=== PATIENT | male | born 1950 | race Caucasian/White ===

== ENCOUNTER 2018-09-20 10:23 | Inpatient (IN) | payer OTHER ==
[2018-09-20 10:52] LABS: Absolute Lymphocytes (CBC) 1.8 K/uL (0.7-4.9); Absolute Monocytes 1.1 K/uL (0.1-1.3); Absolute Neutrophil 11.3 K/uL (1.8-8.0); Eosinophils % 1.7 % (0-4.4); Lymphocytes % 12.3 % (15.3-44.8); Monocytes % 7.3 % (3.3-12.3); RBC Red Blood Cell Count 4.54 M/uL (4.33-5.43)
[2018-09-20 10:53] LABS: Protime INR 1.44
[2018-09-20] MEDS ORDERED: NA CHLORIDE 0.9% 1,000 ML ONE (10:56)
--- NOTE | 2018-09-20 11:13 | RAD REPORT ---
EXAM DESCRIPTION: Rand Single View09/20/2018 10:54 am CLINICAL HISTORY: sob COMPARISON: None FINDINGS: The lungs appear clear of acute infiltrate. The heart is mildly enlarged. Pacemaker leads are in place. Postsurgical changes involve the chest IMPRESSION: No acute abnormalities displayed
[2018-09-20 11:22] LABS: Albumin 3.2 g/dL (3.4-5.0); Bilirubin Direct 0.6 mg/dL (0-0.2); Bilirubin Total 1.2 mg/dL (0.2-1.0); Magnesium 1.8 mg/dL (1.8-2.4); Potassium 4.4 mmol/L (3.5-5.1); Protein, Total 6.5 g/dL (6.4-8.2)
[2018-09-20 11:30] LABS: Troponin (Emerg Dept Use Only) 2.13 ng/mL (0.0-0.045)
--- NOTE | 2018-09-20 12:14 | RAD REPORT ---
EXAM DESCRIPTION: CT - Abdomen Pelvis Wo Contrast - 09/20/2018 11:54 am CLINICAL HISTORY: Abdominal pain /left lower quadrant pain COMPARISON: None TECHNIQUE: Computed axial tomography of the abdomen and pelvis was obtained. IV and oral contrast we re not requested. All CT scans are performed using dose optimization technique as appropriate and may include automated exposure control or mA/KV adjustment according to patient size. FINDINGS: The evaluation of solid organs, vessels and bowel is limited secondary to the lack of con trast administration. The liver, spleen, pancreas, and adrenals appear grossly normal. There is no evidence of diverticulitis. The wall of the distal transverse colon is moderately thicken ed. The wall of portions of the descending and sigmoid colon are mildly to moderately thickened. A small amount of ascites is present. Small renal cysts suspected. No hydronephrosis. Stranding within the perirenal fat is noted IMPRESSION: Moderate colitis
[2018-09-20] MEDS ORDERED: CEFOXITIN/SWI 1gm 1 GM/10 ML SYR ONE (12:36)
[2018-09-20] MEDS ORDERED: METRONIDAZOLE 500mg IVPB 500 MG/100 ML BAG IV ONE (12:36)
--- NOTE | 2018-09-20 13:52 | ER ---
Nurse's Notes [facility] Name: José Prabhakar Age: 68 yrs Sex: Male : 1950 Arrival Date: 09/20/2018 Time: 10:26 Bed 2 Private MD: Diagnosis: Colitis;Gastrointestinal hemorrhage, unspecified;Ventricular tachycardia;Non-ST elevation (NSTEMI) myocardial infarction Presentation: 09/20 10:26 Presenting complaint: EMS states: Pt at the [facility], c/o weakness and his defibrillator went jl7 off 2 days ago. [facility] gave 324 aspirin, after administering aspirin pt reports bloody stools for the last 2 days. C/O LLQ pain. Transition of care: patient was received from another setting of care (ambulatory primary care physician practice), [facility]. Onset of symptoms was September 18, 2018. Risk Assessment: Do you want to hurt yourself or someone else? Patient reports no desire to harm self or others. Initial Sepsis Screen: Does the patient meet any 2 criteria? Systolic BP < 90 mmHg. Mean Arterial Pressure (MAP) < 65. Does the patient have a suspected source of infection? No. Patient's initial sepsis screen is negative. Care prior to arrival: Medication(s) given: Normal saline infusion, 500 mL, IV initiated. 20 GA, in the right forearm. 10:26 Method Of Arrival: EMS: [facility] jl7 10:26 Acuity: GELY 2 jl7 Triage Assessment: 10:37 General: Appears in no apparent distress. uncomfortable, Behavior is calm, cooperative, jl7 appropriate for age. Pain: Complains of pain in left lower quadrant Pain currently is 0 out of 10 on a pain scale. Pain began 2-3 days ago. Neuro: Level of Consciousness is awake, alert, obeys commands, Oriented to person, place, time, situation. Cardiovascular: Patient's skin is warm and dry. Respiratory: Airway is patent Respiratory effort is even, unlabored, Respiratory pattern is regular, symmetrical. GI: Bowel sounds present X 4 quads. Abd is soft Abdomen is tender to palpation in right lower quadrant and left lower quadrant Reports bloody stool. : No signs and/or symptoms were reported regarding the genitourinary system. Derm: Skin is pink, warm \T\ dry. Musculoskeletal: No signs and/or symptoms reported regarding the musculoskeletal system. Historical: - Allergies: 10:34 No Known Allergies; jl7 - Home Meds: 11:03 albuterol sulfate 90 mcg/actuation Inhl HFAA [Active]; aspirin 81 mg Oral chew 1 tab jl7 once daily [Active]; atorvastatin 20 mg oral tab 1 tab once daily [Active]; carboxymethylcellulose sodium miscellaneous gran [Active]; cholecalciferol (vitamin D3) 400 unit oral cap [Active]; cyanocobalamin (vitamin B-12) 1,000 mcg oral tab [Active]; cyclobenzaprine 10 mg Oral tab [Active]; docusate sodium 100 mg Oral cap [Active]; duloxetine 30 mg oral cpDR [Active]; fluticasone propionate (bulk) 100 % miscellaneous powd [Active]; furosemide 20 mg oral tab [Active]; Novolog 100 unit/mL Sub-Q soln [Active]; lisinopril 10 mg Oral tab 1 tab once daily [Active]; metoprolol tartrate 50 mg Oral tab [Active]; tiotropium bromide inhalation inhalation [Active]; - PMHx: 10:34 High Cholesterol; Anemia; Depression; Diabetes - NIDDM; Atrial Fib; defibrillator; jl7 Chronic Kidney disease=stage 3; Hypertension; GERD; Prostate cancer; CAD; Hyperlipidemia; - Immunization history:: Adult Immunizations up to date. - Social history:: Smoking status: Patient/guardian denies using tobacco. - Ebola Screening: : No symptoms or risks identified at this time. Screenin:00 Abuse screen: Denies threats or abuse. Denies injuries from another. Nutritional jl7 screening: No deficits noted. Tuberculosis screening: No symptoms or risk factors identified. Fall Risk IV access (20 points). Total Barksdale Fall Scale indicates No Risk (0-24 pts). Assessment: 10:45 General: See triage assessment. jl7 12:00 Reassessment: Patient appears in no apparent distress at this time. No changes from [facility] previously documented assessment. Patient and/or family updated on plan of care and expected duration. Pain level reassessed. Patient is alert, oriented x 3, equal unlabored respirations, skin warm/dry/pink. Patient denies pain at this time. 13:00 Reassessment: Patient appears in no apparent distress at this time. Patient and/or 7 family updated on plan of care and expected duration. Pain level reassessed. Patient is alert, oriented x 3, equal unlabored respirations, skin warm/dry/pink. 14:00 Reassessment: Patient appears in no apparent distress at this time. No changes from jl7 previously documented assessment. Patient and/or family updated on plan of care and expected duration. Pain level reassessed. Patient is alert, oriented x 3, equal unlabored respirations, skin warm/dry/pink. 15:00 Reassessment: Patient and/or family updated on plan of care and expected duration. Pain jl7 level reassessed. Patient is alert, oriented x 3, equal unlabored respirations, skin warm/dry/pink. Vital Signs: 10:35 BP 73 / 32; Pulse 65; Resp 19 S; Temp 98.2(O); Pulse Ox 99% on R/A; Weight 90.26 kg jl7 (R); Height 5 ft. 11 in. (180.34 cm) (R); Pain 0/10; 10:54 BP 90 / 56; Pulse 68; Resp 16 S; Pulse Ox 98% on R/A; jl7 11:03 BP 83 / 55; Pulse 63; Resp 15 S; Pulse Ox 98% on R/A; jl7 12:10 BP 116 / 61; Pulse 76; Resp 20 S; Pulse Ox 97% on R/A; jl7 12:47 BP 102 / 59; Pulse 79; Resp 14 S; Pulse Ox 97% on R/A; jl7 13:48 BP 105 / 61; Pulse 76; Resp 14 S; Pulse Ox 100% on R/A; jl7 14:00 BP 107 / 62; Pulse 80; Resp 16 S; Pulse Ox 98% on R/A; jl7 14:30 BP 91 / 54; Pulse 79; Resp 16 S; Pulse Ox 97% on R/A; jl7 15:00 BP 87 / 58; Pulse 78; Resp 16 S; Pulse Ox 98% on R/A; jl7 15:30 BP 102 / 66; Pulse 81; Resp 16 S; Pulse Ox 98% on R/A; jl7 10:35 Body Mass Index 27.75 (90.26 kg, 180.34 cm) jl7 ED Course: 10:26 Patient arrived in ED. jl7 10:27 Jose Villegas PA is PHCP. jr8 10:27 Moshe Plaza MD is Attending Physician. jr8 10:30 Triage completed. jl7 10:35 Arm band placed on right wrist. jl7 10:55 EKG done, by gate technician. reviewed by Jose REDMAN times three. at1 10:56 XRAY Chest (1 view) In Process Unspecified. EDMS 11:07 Jewels Muir, BREANNA is Primary Nurse. jl7 11:15 Inserted saline lock: 20 gauge in left antecubital area, using aseptic technique. jl7 11:15 Initial lab(s) drawn, by ED staff, sent to lab. jl7 11:52 CT completed. Patient tolerated procedure well. Patient moved to CT via stretcher. vr Patient moved back from CT. 11:55 CT Abd/Pelvis - Without Cont In Process Unspecified. EDMS 12:00 Patient has correct armband on for positive identification. Placed in gown. Bed in low jl7 position. Call light in reach. Side rails up X 1. 13:49 Sloane Winston MD is Hospitalizing Provider. jr8 14:48 \T\1156 initiated a transfer with Charlee at the [facility]/ \T\[address] Hawkins with Jose REDMAN for patient transfer consultation/ \T\1330 pt declined at the [facility] due to being at capacity. 16:34 No provider procedures requiring assistance completed. Patient admitted, IV remains in jl7 place. intact, No redness/swelling at site. Administered Medications: 10:45 Drug: NS 0.9% 500 ml Route: IV; Rate: bolus; Site: right antecubital; jl7 11:15 Follow up: IV Status: Completed infusion; IV Intake: 500ml jl7 12:34 Drug: Mefoxin 1 grams {Note: Provided by pharmacy in 10ml IVP, administered IVP over 3 jl7 min per pharmacy instruction.} Route: IVPB; Infused Over: 30 mins; Site: right antecubital; 12:37 Follow up: Response: No adverse reaction; IV Status: Completed infusion jl7 12:40 Drug: Flagyl 500 mg Volume: 100 ml; Route: IVPB; Rate: 200 ml/hr; Infused Over: 30 jl7 mins; Site: right antecubital; 13:10 Follow up: Response: No adverse reaction; IV Status: Completed infusion jl7 Intake: 11:15 IV: 500ml; Total: 500ml. jl7 Outcome: 13:50 Decision to Hospitalize by Provider. jrJewels 16:32 Admitted to ICU accompanied by nurse, accompanied by tech, family with patient, via jl7 stretcher, room 5, on monitor, with chart, Report called to ICU nurse 16:32 Condition: stable 16:32 Discharge instructions given to patient, family, Instructed on the need for admit, Demonstrated understanding of instructions. 16:35 Patient left the ED. jl7 Signatures: Dispatcher [employer] EDMS Laila Hamilton ms, Victoria vr Roszak, Josh, PA PA jr8 Kari Dowd, erection shop supervisor EKG Ramon1 Jewels Muir, RN RN jl7
--- NOTE | 2018-09-20 13:52 | EDPHYS ---
Physician Documentation [facility] Name: José Prabhakar Age: 68 yrs Sex: Male : 1950 Arrival Date: 09/20/2018 Time: 10:26 Bed 2 Private MD: ED Physician Moshe Plaza HPI: 09/20 10:49 This 68 yrs old Male presents to ER via EMS with complaints of Bloody jr8 Stools/Syncope. 10:49 Patient stated that he has had three day history of on/off BRBPR. Stated that he has jr8 had on/off bleeding for years. But over the past few days has had falls secondary to Syncope and his defibrillator has gone off twice now. Was at [facility] office today and confirmed defibrillator going off. Patient could not tell me why. Patient hypotensive per EMS and on arrival to ED. Has had mild abdominal discomfort to lower abdomen as well. Severity of symptoms: At their worst the symptoms were moderate in the emergency department the symptoms are unchanged. The patient has not experienced similar symptoms in the past. The patient has not recently seen a physician. Historical: - Allergies: 10:34 No Known Allergies; jl7 - Home Meds: 11:03 albuterol sulfate 90 mcg/actuation Inhl HFAA [Active]; aspirin 81 mg Oral chew 1 tab jl7 once daily [Active]; atorvastatin 20 mg oral tab 1 tab once daily [Active]; carboxymethylcellulose sodium miscellaneous gran [Active]; cholecalciferol (vitamin D3) 400 unit oral cap [Active]; cyanocobalamin (vitamin B-12) 1,000 mcg oral tab [Active]; cyclobenzaprine 10 mg Oral tab [Active]; docusate sodium 100 mg Oral cap [Active]; duloxetine 30 mg oral cpDR [Active]; fluticasone propionate (bulk) 100 % miscellaneous powd [Active]; furosemide 20 mg oral tab [Active]; Novolog 100 unit/mL Sub-Q soln [Active]; lisinopril 10 mg Oral tab 1 tab once daily [Active]; metoprolol tartrate 50 mg Oral tab [Active]; tiotropium bromide inhalation inhalation [Active]; - PMHx: 10:34 High Cholesterol; Anemia; Depression; Diabetes - NIDDM; Atrial Fib; defibrillator; jl7 Chronic Kidney disease=stage 3; Hypertension; GERD; Prostate cancer; CAD; Hyperlipidemia; - Immunization history:: Adult Immunizations up to date. - Social history:: Smoking status: Patient/guardian denies using tobacco. - Ebola Screening: : No symptoms or risks identified at this time. ROS: 10:49 Eyes: Negative for injury, pain, redness, and discharge, ENT: Negative for injury, jr8 pain, and discharge, Neck: Negative for injury, pain, and swelling, Cardiovascular: Negative for chest pain, palpitations, and edema, Respiratory: Negative for shortness of breath, cough, wheezing, and pleuritic chest pain, Back: Negative for injury and pain, MS/Extremity: Negative for injury and deformity, Skin: Negative for injury, rash, and discoloration. 10:49 Abdomen/GI: Positive for abdominal pain, rectal bleeding, Negative for nausea, vomiting, and diarrhea, abdominal cramps, abdominal distension, anorexia, hematemesis, black/tarry stool, bowel incontinence, flatulence. 10:49 Neuro: Positive for dizziness, syncope, near syncope. Exam: 10:49 Eyes: Pupils equal round and reactive to light, extra-ocular motions intact. Lids and jr8 lashes normal. Conjunctiva and sclera are non-icteric and not injected. Cornea within normal limits. Periorbital areas with no swelling, redness, or edema. ENT: Nares patent. No nasal discharge, no septal abnormalities noted. Tympanic membranes are normal and external auditory canals are clear. Oropharynx with no redness, swelling, or masses, exudates, or evidence of obstruction, uvula midline. Mucous membranes moist. Neck: Trachea midline, no thyromegaly or masses palpated, and no cervical lymphadenopathy. Supple, full range of motion without nuchal rigidity, or vertebral point tenderness. No Meningismus. Cardiovascular: Regular rate and rhythm with a normal S1 and S2. No gallops, murmurs, or rubs. Normal PMI, no JVD. No pulse deficits. Respiratory: Lungs have equal breath sounds bilaterally, clear to auscultation and percussion. No rales, rhonchi or wheezes noted. No increased work of breathing, no retractions or nasal flaring. Back: No spinal tenderness. No costovertebral tenderness. Full range of motion. Skin: Warm, dry with normal turgor. Normal color with no rashes, no lesions, and no evidence of cellulitis. MS/ Extremity: Pulses equal, no cyanosis. Neurovascular intact. Full, normal range of motion. Neuro: Awake and alert, GCS 15, oriented to person, place, time, and situation. Cranial nerves II-XII grossly intact. Motor strength 5/5 in all extremities. Sensory grossly intact. Cerebellar exam normal. Normal gait. 10:49 Abdomen/GI: Inspection: abdomen appears normal, Bowel sounds: active, all quadrants, Palpation: soft, in all quadrants, mild abdominal tenderness, in the right lower quadrant, mass, is not appreciated, rebound tenderness, is not appreciated, voluntary guarding, is not appreciated, involuntary guarding, is not appreciated, no appreciated organomegaly, Indicators: McBurney's point is not tender, Trammell's sign is negative, Rovsing's sign is negative, Liver: tenderness, is not appreciated. Vital Signs: 10:35 BP 73 / 32; Pulse 65; Resp 19 S; Temp 98.2(O); Pulse Ox 99% on R/A; Weight 90.26 kg jl7 (R); Height 5 ft. 11 in. (180.34 cm) (R); Pain 0/10; 10:54 BP 90 / 56; Pulse 68; Resp 16 S; Pulse Ox 98% on R/A; jl7 11:03 BP 83 / 55; Pulse 63; Resp 15 S; Pulse Ox 98% on R/A; jl7 12:10 BP 116 / 61; Pulse 76; Resp 20 S; Pulse Ox 97% on R/A; jl7 12:47 BP 102 / 59; Pulse 79; Resp 14 S; Pulse Ox 97% on R/A; jl7 13:48 BP 105 / 61; Pulse 76; Resp 14 S; Pulse Ox 100% on R/A; jl7 14:00 BP 107 / 62; Pulse 80; Resp 16 S; Pulse Ox 98% on R/A; jl7 14:30 BP 91 / 54; Pulse 79; Resp 16 S; Pulse Ox 97% on R/A; jl7 15:00 BP 87 / 58; Pulse 78; Resp 16 S; Pulse Ox 98% on R/A; jl7 15:30 BP 102 / 66; Pulse 81; Resp 16 S; Pulse Ox 98% on R/A; jl7 10:35 Body Mass Index 27.75 (90.26 kg, 180.34 cm) jl7 MDM: 10:27 Patient medically screened. jr8 13:23 Data reviewed: vital signs, nurses notes, lab test result(s), EKG, radiologic studies, jr8 CT scan, plain films. Data interpreted: Pulse oximetry: on room air is 97 %. Interpretation: normal. Counseling: I had a detailed discussion with the patient and/or guardian regarding: the historical points, exam findings, and any diagnostic results supporting the discharge/admit diagnosis, lab results, radiology results. ED course: Patient is a [facility] patient that has all of his cardiac care done there. Attempting to transfer to [facility] for elevated troponin and arrhythmia . 13:48 ED course: Spoke with [facility]. Hawkins at the [facility]. Unable to accept patient as they do not [facility] have any CCU openings currently. Dr. Winston will see patient here and admit to our ICU. Cardiology will evaluate here. . 09/20 10:33 Order name: Basic Metabolic Panel; Complete Time: 11:33 09/20 10:33 Order name: CBC with Diff; Complete Time: 11:07 09/20 10:33 Order name: LFT's; Complete Time: 11:33 09/20 10:33 Order name: Magnesium; Complete Time: 11:33 09/20 10:33 Order name: NT PRO-BNP; Complete Time: 11:33 09/20 10:33 Order name: PT-INR; Complete Time: 11:07 09/20 10:33 Order name: Troponin (emerg Dept Use Only); Complete Time: 11:33 09/20 10:33 Order name: XRAY Chest (1 view); Complete Time: 11:26 09/20 10:33 Order name: TS; Complete Time: 12:02 09/20 11:24 Order name: ABO/RH no charge; Complete Time: 11:26 EDMS 09/20 11:34 Order name: CT Abd/Pelvis - Without Cont; Complete Time: 12:17 09/20 10:33 Order name: EKG; Complete Time: 10:34 09/20 10:33 Order name: Cardiac monitoring; Complete Time: 10:44 09/20 10:33 Order name: EKG - Nurse/Tech; Complete Time: 10:44 09/20 10:33 Order name: IV Saline Lock; Complete Time: 10:44 09/20 10:33 Order name: Labs collected and sent; Complete Time: :44 09/20 10:33 Order name: O2 Per Protocol; Complete Time: 10:44 09/20 10:33 Order name: O2 Sat Monitoring; Complete Time: 10:44 09/20 10:58 Order name: EKG Electrocardiogram EDMS 09/20 10:58 Order name: EKG Electrocardiogram EDMS Administered Medications: 10:45 Drug: NS 0.9% 500 ml Route: IV; Rate: bolus; Site: right antecubital; jl7 11:15 Follow up: IV Status: Completed infusion; IV Intake: 500ml jl7 12:34 Drug: Mefoxin 1 grams {Note: Provided by pharmacy in 10ml IVP, administered IVP over 3 jl7 min per pharmacy instruction.} Route: IVPB; Infused Over: 30 mins; Site: right antecubital; 12:37 Follow up: Response: No adverse reaction; IV Status: Completed infusion jl7 12:40 Drug: Flagyl 500 mg Volume: 100 ml; Route: IVPB; Rate: 200 ml/hr; Infused Over: 30 jl7 mins; Site: right antecubital; 13:10 Follow up: Response: No adverse reaction; IV Status: Completed infusion jl7 Disposition: 09/20/18 13:50 Hospitalization ordered by Sloane Winston for Inpatient Admission. Preliminary diagnosis are Colitis, Gastrointestinal hemorrhage, unspecified, Ventricular tachycardia, Non-ST elevation (NSTEMI) myocardial infarction. - Bed requested for Intensive Care Unit. - Status is Inpatient Admission. jl7 - Condition is Stable. - Problem is new. - Symptoms have improved. UTI on Admission? No Addendum: 09/23/2018 05:30 Co-signature as Attending Physician, Moshe Plaza MD I agree with the assessment and c dixon plan of care. Signatures: Dispatcher [employer] Raquel Sweet, RN Moshe Santos MD MD cha Roszak, Josh, PA PA jr8 Jewels Muir RN RN jl7 Corrections: (The following items were deleted from the chart) 09/20 13:51 13:50 Hospitalization Ordered by Sloane Winston MD for Inpatient Admission. Preliminary jr8 diagnosis is Colitis; Gastrointestinal hemorrhage, unspecified; Ventricular tachycardia. Bed requested for Intensive Care Unit. Status is Inpatient Admission. Condition is Stable. Problem is new. Symptoms have improved. UTI on Admission? No. jr8 15:25 13:51 09/20/2018 13:50 Hospitalization Ordered by Sloane Winston MD for Inpatient dw Admission. Preliminary diagnosis is Colitis; Gastrointestinal hemorrhage, unspecified; Ventricular tachycardia; Non-ST elevation (NSTEMI) myocardial infarction. Bed requested for Intensive Care Unit. Status is Inpatient Admission. Condition is Stable. Problem is new. Symptoms have improved. UTI on Admission? No. jr8 16:35 15:25 09/20/2018 13:50 Hospitalization Ordered by Sloane Winston MD for Inpatient jl7 Admission. Preliminary diagnosis is Colitis; Gastrointestinal hemorrhage, unspecified; Ventricular tachycardia; Non-ST elevation (NSTEMI) myocardial infarction. Bed requested for Intensive Care Unit. Status is Inpatient Admission. Condition is Stable. Problem is new. Symptoms have improved. UTI on Admission? No. dw
--- NOTE | 2018-09-20 16:20 | EKG ---
Test Date: 2018-09-20 Test Time: 10:50:05 Protohistorian: ELVIRA MEASUREMENT RESULTS: Intervals: Rate: 64 NM: 302 QRSD: 98 QT: 512 QTc: 528 [place]: P: 75 NM: 302 QRS: 264 T: 102 INTERPRETIVE STATEMENTS: Sinus rhythm with sinus arrhythmia with 1st degree AV block Anterolateral infarct, age undetermined Prolonged QT Abnormal ECG Compared to ECG 09/20/2018 10:49:28 First degree AV block now present Ventricular-paced complex(es) or rhythm no longer present Atrial premature complex(es) no longer present Ventricular premature complex(es) no longer present Short NM interval no longer present Myocardial infarct finding still present Electronically Signed On 09-20-18 16:19:01 COPPERSMITH APPRENTICE by Oswald Randall
--- NOTE | 2018-09-20 16:20 | EKG ---
Test Date: 2018-09-20 Test Time: 10:48:41 Elevator Operator Freight: ELVIRA MEASUREMENT RESULTS: Intervals: Rate: 80 PA: QRSD: 98 QT: 494 QTc: 569 [place]: P: 97 PA: QRS: 265 T: 103 INTERPRETIVE STATEMENTS: Suspect arm lead reversal, interpretation assumes no reversal Demand pacemaker, interpretation is based on intrinsic rhythm Sinus rhythm with AV dissociation and Accelerated Junctional rhythm with occasional and consecutive premature ventricular compl Inferior infarct, possibly acute Anterolateral infarct, age undetermined Prolonged QT Electronically Signed On 09-20-18 16:20:18 FOOT ROENTGENOLOGIST by Oswald Randall
--- NOTE | 2018-09-20 16:20 | EKG ---
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 [employer] Salvaging: ELVIRA MEASUREMENT RESULTS: Intervals: Rate: 76 CA: 80 QRSD: 98 QT: 496 QTc: 558 [place]: P: 96 CA: 80 QRS: 264 T: 99 INTERPRETIVE STATEMENTS: Demand pacemaker, interpretation is based on intrinsic rhythm Sinus rhythm with short CA with premature supraventricular complexes with occasional premature ventricular complexes and fusion Possible Right ventricular hypertrophy Anterolateral infarct, age undetermined Prolonged QT Abnormal ECG Compared to ECG 09/20/2018 10:48:41 Atrial premature complex(es) now present Short CA interval now present Accelerated junctional rhythm no longer present Electronically Signed On 09-20-18 16:20:03 PRISON GUARD by Oswald Randall
[2018-09-20] MEDS: NA CHLORIDE 0.9% 1,000 ML IV SCH (17:03)
[2018-09-20] MEDS ORDERED: CEFOXITIN SODIUM 1 GM/VIAL IVPB SCH ×2 (19:00→20:00)
--- NOTE | 2018-09-20 19:05 | P.HP ---
Certification for Inpatient Patient admitted to: Inpatient With expected LOS: >2 Midnights Practitioner: I am a practitioner with admitting privileges, knowledge of patient current condition, hospital course, and medical plan of care. Services: Services provided to patient in accordance with Admission requirements found in Title 42 Section 412.3 of the Code of Federal Regulations Patient History Date of Service: 09/20/18 Reason for admission: Pacemaker firing History of Present Illness: This is a 68-year-old male with history of hypertension, CKD stage 3, prostate cancer, CAD, atrial fibrillation with pacemaker/defibrillator placement, non- insulin-dependent 3 days mellitus hyperlipidemia admitted for pacemaker firing associated with syncopal episodes, along with abdominal pain that has been progressively worsening for the past few days. Patient stated the Sunday prior to arrival, he was not feeling well. He scheduled an appointment with his primary care physician because he continued to worsen. Prior to his primary care appointment on the day of admission, he stated that he had a fall/ syncope. He also states that when he moves or walks too much 8 starts to feel lightheaded. He has been having this nagging chest sensation along with pain in his abdomen. He was told to go to the emergency room from his primary care physician's office. Of note, patient was also complaining of 3 days of bright red blood per rectum that he noted in the toilet bowl. He states that the last time he noticed this was a few days ago. In our ER, transfer was attempted to the [facility] but they were unsuccessful in transferring as the hospital was full. In the ER, he was found to have a idioventricular rhythm along with episodes of V-tach that was causing his defibrillator to go off. His blood pressure was initially low, responded to IV fluids. She received a total 1.5 L bolus in the ER. In the ER his lab work was significant for troponin of 2.13. A CT scan of his abdomen with evidence of colitis. He was started on IV fluids, antibiotics with Mefoxin and Flagyl. At the time of my exam, he is alert oriented x3, in no acute distress and was hemodynamically stable. Allergies No Known Allergies Allergy (Unverified 09/20/18 16:09) Home Medications: Aspirin [Aspirin EC 81 MG] 1 tab PO DAILY 09/20/18 Atorvastatin Calcium 20 mg PO BEDTIME 09/20/18 Carboxymethylcellulose Sodium [Lubricant Eye Drop] 1 gtt OPTH PRN PRN 09/20/18 Cholecalciferol (Vitamin D3) [Vitamin D3] 1 cap PO BID 09/20/18 Cyanocobalamin [Vitamin B-12*] 1 tab PO DAILY 09/20/18 Cyclobenzaprine [Flexeril*] 1 tab PO PRN PRN 09/20/18 Docusate Sodium 100 mg PO BID 09/20/18 Duloxetine HCl 30 mg PO BEDTIME 09/20/18 Duloxetine HCl 60 mg PO DAILY 09/20/18 Furosemide 20 mg PO BID 09/20/18 Lisinopril 10 mg PO DAILY 09/20/18 Sulfamethoxazole/Trimethoprim [Bactrim Ds Tablet] 1 tab PO BID 09/20/18 Tiotropium [place] [Spiriva] 2 inh IH PRN PRN 09/20/18 - Past Medical/Surgical History Has patient received pneumonia vaccine in the past: Yes Diabetic: Yes -: hyperlipidimia -: CKD -: HTN -: GERD -: Prostate CA -: CAD -: Anemia -: NIDDM -: AFib -: ICD - Social History Smoking Status: Former smoker Alcohol use: No CD- Drugs: No Caffeine use: Yes Place of Residence: Home Review of Systems 10-point ROS is otherwise unremarkable Physical Examination - Vital Signs Temperature: 96.6 F Blood Pressure: 89/53 Pulse: 62 Respirations: 16 Pulse Ox (%): 98 - Physical Exam General: Alert, In no apparent distress, Oriented x3 HEENT: Atraumatic, PERRLA, Mucous membr. moist/pink, EOMI, Sclerae nonicteric Neck: Supple, 2+ carotid pulse no bruit, No LAD, Without JVD or thyroid abnormality Respiratory: Clear to auscultation bilaterally, Normal air movement Cardiovascular: Irregular heart rate/rhythm Gastrointestinal: Normal bowel sounds, Tenderness (Diffuse) Musculoskeletal: No tenderness Integumentary: No rashes Neurological: Normal gait, Normal speech, Normal strength at 5/5 x4 extr, Normal tone, Normal affect Lymphatics: No axilla or inguinal lymphadenopathy - Studies Laboratory Data (last 24 hrs) 09/20/18 10:28: PT 16.7 H, INR 1.44 09/20/18 10:28: WBC 14.5 H, Hgb 13.6, Hct 40.0, Plt Count 269 09/20/18 10:28: Sodium 136, Potassium 4.4, BUN 41 H, Creatinine 2.91 H, Glucose 146 H, Magnesium 1.8, Total Bilirubin 1.2 H, AST 12 L, ALT 12, Alkaline Phosphatase 93 Assessment and Plan - Problems (Diagnosis) (1) Syncope Current Visit: Yes Status: Acute Qualifiers: Syncope type: unspecified Qualified Code(s): R55 - Syncope and collapse (2) Defibrillator discharge Current Visit: Yes Status: Acute (3) Cardiac defibrillator in situ Current Visit: Yes Status: Chronic (4) Colitis Current Visit: Yes Status: Acute (5) Hypertension Current Visit: Yes Status: Chronic Qualifiers: Hypertension type: essential hypertension Qualified Code(s): I10 - Essential (primary) hypertension (6) CKD (chronic kidney disease) Current Visit: Yes Status: Chronic Qualifiers: Chronic kidney disease stage: stage 3 (moderate) Qualified Code(s): N18.3 - Chronic kidney disease, stage 3 (moderate) (7) History of prostate cancer Current Visit: Yes Status: Chronic (8) Diabetes mellitus Current Visit: Yes Status: Chronic Qualifiers: Diabetes mellitus type: type 2 Diabetes mellitus intermediate designer insulin use: without retirement use Diabetes mellitus complication status: without complication Qualified Code(s): E11.9 - Type 2 diabetes mellitus without complications (9) Atrial fibrillation Current Visit: Yes Status: Chronic Qualifiers: Atrial fibrillation type: chronic Qualified Code(s): I48.2 - Chronic atrial fibrillation (10) Hyperlipidemia Current Visit: Yes Status: Chronic Qualifiers: Hyperlipidemia type: unspecified Qualified Code(s): E78.5 - Hyperlipidemia , unspecified (11) CHF (congestive heart failure) Current Visit: Yes Status: Chronic Qualifiers: Heart failure type: unspecified Heart failure chronicity: chronic Qualified Code(s): I50.9 - Heart failure, unspecified (12) Acute renal failure Current Visit: Yes Status: Acute Qualifiers: Acute renal failure type: unspecified Qualified Code(s): N17.9 - Acute kidney failure, unspecified - Plan This is a 68-year-old male with: Defibrillator discharge (Acute) Z45.02 Cardiac defibrillator in situ (Chronic) We will get his pacemaker interrogated with [facility]. Monitor in the ICU with tele. Syncope (Acute) R55 Likely secondary to his defibrillator discharge. Will monitor after pacemaker interrogation. Atrial fibrillation (Chronic) I48.91 Will continue his home medications Cardiology consult Colitis (Acute) K52.9 He will avoid fluoroquinolones because this cardiac disease. Will start patient on Mefoxin and Flagyl for his colitis. Keep NPO at this time Will continue to monitor next CHF (congestive heart failure) (Chronic) I50.9 Unspecified stage. History per patient. No evidence of volume overload at this time. Acute Kidney disease CKD (chronic kidney disease) (Chronic) N18.9 Unsure of baseline Cr, though Cr elevated. Will avoid nephrotoxic drugs Gently hydration d/t his CHF hx. continue to monitor. Diabetes mellitus (Chronic) E11.9 ACHS accu-checks Mild sliding scale insulin Hyperlipidemia (Chronic) E78.5 Stable, will continue home medications Hypotension w/ hx of Hypertension (Chronic) I10 He is s/p 1.5 L bolus in ED d/t low blood pressure. Improved now, continue to monitor. Hold HTN medications at this time. Will restart and adjust as needed. Discontinue lisinopril d/t JE History of prostate cancer (Chronic) Z85.46 DVT prophylaxis: Lovenox GI prophylaxis: None Diet: NPO Disposition:Admit to ICU, Pacemaker interogation, Monitor hemodynamics. - Advance Directives Does patient have a Living Will: No Does patient have a Durable POA for Healthcare: No
[2018-09-20] MEDS: METRONIDAZOLE 500mg IVPB 500 MG/100 ML BAG IV SCH (20:20)
[2018-09-21] MEDS: METRONIDAZOLE 500mg IVPB 500 MG/100 ML BAG IV SCH ×3 (01:25→17:16)
[2018-09-21] MEDS: NA CHLORIDE 0.9% 1,000 ML IV SCH ×3 (02:26→13:07)
[2018-09-21 05:35] LABS: Absolute Lymphocytes (CBC) 2.2 K/uL (0.7-4.9); Absolute Monocytes 0.8 K/uL (0.1-1.3); Absolute Neutrophil 9.2 K/uL (1.8-8.0); Basophils % 1.2 % (0-1.3); Eosinophils % 3.9 % (0-4.4); Hematocrit 34.6 % (39.6-49.0); MPV 9.2 fL (7.6-11.3); Monocytes % 6.1 % (3.3-12.3); RBC Red Blood Cell Count 4.01 M/uL (4.33-5.43)
[2018-09-21] MEDS: CEFOXITIN/SWI 1gm 1 GM/10 ML SYR IV SCH ×2 (05:48→18:08)
[2018-09-21 05:53] LABS: Albumin 3.2 g/dL (3.4-5.0); Bilirubin Total 0.8 mg/dL (0.2-1.0); Potassium 4.1 mmol/L (3.5-5.1)
--- NOTE | 2018-09-21 13:58 | CON ---
Date of Consultation: 09/21/[address] Winston's service on 09/20/2018. I saw the patient on 09/21/2018. Reason For Consultation: AICD discharge, bright red blood per rectum, and syncope. History Of Present Illness: Mr. Prabhakar is a 68-year-old white male, who has an extensive past card iac history. He has a history of defibrillator placed many years ago in [place], has a history of coronary artery bypass surgery done at the [facility] here locally. He normally is a [place] patient. Apparently had 2 AICD discharge, which was confirmed by the [facility]. AICD investigation here s howed no VT or VF. He had atrial tachycardia with automatic mode switch. Atrial output was increase d to help prevent that. He has not had any arrhythmias since he has been in the hospital. Has had s ome bright red blood per rectum, but his hemoglobin is 13.6. He has been on Bactrim and lisinopril f or an ear infection and hypertension. His creatinine was 2.91. He came in with a white count of 14, 000. Troponin was 1.76. BNP was 34,256. His blood pressure was 94/60. He was also diagnosed to dixon ve colitis, and he is on Flagyl now. Denied any chest pain or shortness of breath. Denied any vomit ing or diaphoresis. Has had some nausea. No palpitations. Past Medical History: Includes CAD, status post CABG; dyslipidemia; hypertension; anemia; gastroesop hageal reflux disease; diabetes; depression; atrial fibrillation; history of prostate cancer, cured i n 2004; chronic renal disease stage 3; and history of defibrillator. Allergies: NONE. Review of Systems: Negative. Social History: Negative. Family History: Noncontributory. Medications: At home include aspirin; Lipitor; Spiriva; Lasix; lisinopril; Bactrim; and metoprolol, which was stopped about a month ago, this was stopped secondary to hypotension. Physical Examination: General: He appears to be in no acute distress. Vital signs: Blood pressure is 94/60, sinus rhythm. HEENT: Negative. Neck: Supple without any bruit, lymphadenopathy, JVD, or thyromegaly. Chest: Clear to auscultation and percussion. Cardiac exam: Revealed a regular rhythm and rate with no murmurs or rubs or gallops. Abdomen: Obese, but benign. Extremities: Revealed no clubbing, cyanosis, or edema. Pulses are present in the dorsalis pedis and posterior tibial. Neurologic: He was intact. Skin: Dry and intact. Diagnostic Data: As stated earlier. Chest x-ray is negative. EKG showed normal sinus rhythm with n onspecific changes. Impression And Plan: 1.Syncope, AICD shocks secondary to atrial tachycardia, automatic mode switch. Atrial output was in creased. I will suggest digoxin p.r.n. and maybe a low-dose metoprolol if he tolerates it. Amiodaro ne is another suggestions. I will leave that up to the [facility] physicians. 2.Chronic renal insufficiency stage 3. Creatinine was 2.91. I suggest he gets off Bactrim and aron nopril for now. 3.Diabetes. 4.Colitis, on antibiotics. 5.Elevated troponin and BNP secondary to renal failure and chronic congestive heart failure. 6.His other problems include dyslipidemia, depression, gastroesophageal reflux disease, and history of prostate cancer. All of those are stable at this point. 7.He has bright red blood per rectum, but his hemoglobin is 13.6 and certainly does not require any invasive cardiac workup at this point. He can be moved to a regular room telemetry whenever it is okay with Dr. Winston, and I will continue t o follow him. CEDRIC/DONAVAN Voice ID: [id number] Report ID: [id number]
--- NOTE | 2018-09-21 14:15 | P.PN ---
Subjective Date of Service: 09/21/18 Chief Complaint: Pacemaker firing Subjective: Improving Patient seen and examined at bedside. at bedside. Chart reviewed and case discussed with nursing staff. Patient reports improvement in symptoms. No complaints overnight. No tele events or defibrillator discharge overnight. Tolerating regular diet at this time. Denies any new blood in stool, any active bleeding, any chest pain, any shortness of breath, any dizziness or syncopal episodes since he has been here. Does not feel like his pacemaker/ defibrillator has been sent off. He is status post interrogation by [facility]. Review of Systems 10-point ROS is otherwise unremarkable Physical Examination - Vital Signs Temperature: 96.6 F Blood Pressure: 89/53 Pulse: 62 Respirations: 16 Pulse Ox (%): 98 - Physical Exam General: Alert, In no apparent distress, Oriented x3 HEENT: Atraumatic, PERRLA, EOMI Neck: Supple, JVD not distended Respiratory: Clear to auscultation bilaterally, Normal air movement Cardiovascular: Regular rate/rhythm, Normal S1 S2 Gastrointestinal: Normal bowel sounds, No tenderness Musculoskeletal: No tenderness Integumentary: No rashes Neurological: Normal speech, Normal tone, Normal affect Lymphatics: No axilla or inguinal lymphadenopathy Assessment And Plan - Current Problems (Diagnosis) (1) Syncope Current Visit: Yes Status: Acute Qualifiers: Qualified Code(s): R55 - Syncope and collapse (2) Defibrillator discharge Current Visit: Yes Status: Acute (3) Cardiac defibrillator in situ Current Visit: Yes Status: Chronic (4) Colitis Current Visit: Yes Status: Acute (5) Hypertension Current Visit: Yes Status: Chronic Qualifiers: Qualified Code(s): I10 - Essential (primary) hypertension (6) CKD (chronic kidney disease) Current Visit: Yes Status: Chronic Qualifiers: Qualified Code(s): N18.3 - Chronic kidney disease, stage 3 (moderate) (7) History of prostate cancer Current Visit: Yes Status: Chronic (8) Diabetes mellitus Current Visit: Yes Status: Chronic Qualifiers: Qualified Code(s): E11.9 - Type 2 diabetes mellitus without complications (9) Atrial fibrillation Current Visit: Yes Status: Chronic Qualifiers: Qualified Code(s): I48.2 - Chronic atrial fibrillation (10) Hyperlipidemia Current Visit: Yes Status: Chronic Qualifiers: Qualified Code(s): E78.5 - Hyperlipidemia, unspecified (11) CHF (congestive heart failure) Current Visit: Yes Status: Chronic Qualifiers: Qualified Code(s): I50.9 - Heart failure, unspecified (12) Acute renal failure Current Visit: Yes Status: Acute Qualifiers: Acute renal failure type: unspecified Qualified Code(s): N17.9 - Acute kidney failure, unspecified - Plan This is a 68-year-old male with: Defibrillator discharge (Acute) Z45.02 Cardiac defibrillator in situ (Chronic) Status post pacemaker interrogation with [facility]. It seems that his defibrillator was discharging from atrial tachycardia. Defibrillator adjusted. Syncope (Acute) R55 No episodes while in the hospital. Likely secondary to his defibrillator discharge. Continue to monitor after pacemaker interrogation. Atrial fibrillation (Chronic) I48.91 Will continue his home medications Cardiology consult, recommendations appreciated Colitis (Acute) K52.9 Improving We will avoid fluoroquinolones because this cardiac disease. Continue IV Mefoxin and Flagyl for his colitis. CHF (congestive heart failure) (Chronic) I50.9 Unspecified stage. History per patient. No evidence of volume overload at this time. Acute Kidney disease CKD (chronic kidney disease) (Chronic) N18.9 Unsure of baseline Cr, though Cr elevated and worsened this morning. Will avoid nephrotoxic drugs Continue Gentle hydration d/t his CHF hx. continue to monitor. Diabetes mellitus (Chronic) E11.9 ACHS accu-checks Mild sliding scale insulin Hyperlipidemia (Chronic) E78.5 Stable, will continue home medications Hypotension w/ hx of Hypertension (Chronic) I10 He is s/p 1.5 L bolus in ED d/t low blood pressure. Improved now, continue to monitor. Hold HTN medications at this time. Will restart and adjust as needed. Discontinue lisinopril d/t JE History of prostate cancer (Chronic) Z85.46 DVT prophylaxis: Lovenox GI prophylaxis: None Diet: NPO Disposition: Patient stable after pacemaker interrogation/defibrillator adjustments. Will go ahead and transfer to the floor, continue to monitor overnight. Likely discharge home in the next 24-48 hr continues to remain stable. Discharge Plan: Home
[2018-09-22] MEDS: METRONIDAZOLE 500mg IVPB 500 MG/100 ML BAG IV SCH ×3 (01:55→16:22)
[2018-09-22] MEDS: NA CHLORIDE 0.9% 1,000 ML IV SCH ×2 (05:04→17:13)
[2018-09-22] MEDS: CEFOXITIN/SWI 1gm 1 GM/10 ML SYR IV SCH ×2 (05:04→17:13)
[2018-09-22 05:32] VITALS: BMI 29.2
[2018-09-22 05:51] LABS: Absolute Lymphocytes (CBC) 1.7 K/uL (0.7-4.9); Absolute Monocytes 0.7 K/uL (0.1-1.3); Absolute Neutrophil 7.7 K/uL (1.8-8.0); Eosinophils % 4.2 % (0-4.4); Hematocrit 35.6 % (39.6-49.0); Lymphocytes % 15.5 % (15.3-44.8); Monocytes % 6.6 % (3.3-12.3); RBC Red Blood Cell Count 4.09 M/uL (4.33-5.43)
[2018-09-22 06:06] LABS: Albumin 3.1 g/dL (3.4-5.0); Bilirubin Total 0.7 mg/dL (0.2-1.0); Potassium 4.5 mmol/L (3.5-5.1); Protein, Total 6.2 g/dL (6.4-8.2)
[2018-09-22] MEDS: DOCUSATE NA 100 MG CAP PO PRN ×2 (09:48→20:44)
[2018-09-22 10:53] LABS: Urine Appearance CLEAR; Urine Bilirubin NEGATIVE (NEG); Urine Blood NEGATIVE (NEG); Urine Color YELLOW; Urine Glucose NEGATIVE (NEG); Urine Protein 1+ (NEG); Urine Specific Gravity 1.015 (1.005-1.030); Urine Urobilinogen 0.2 mg/dL (0.2-1.0); Urine pH 5.5 (5.0-7.0)
[2018-09-22 11:11] LABS: Urine Bacteria <20 /HPF (NONE SEEN); Urine Culture Reflex Order NOT NEEDED; Urine RBC <5 /HPF (NONE SEEN)
[2018-09-22] MEDS ORDERED: CARBOXYMETHYLCELLULOSE SODIUM OPTH PRN (11:52)
--- NOTE | 2018-09-22 11:53 | P.PN ---
Subjective Date of Service: 09/22/18 Chief Complaint: Pacemaker discharging Subjective: No C/O voiced, Improving Patient seen and examined at bedside. No family at bedside. Chart reviewed and case discussed with nursing staff. Patient reports improvement in symptoms. No complaints overnight. No tele events or defibrillator discharge overnight. Tolerating regular diet at this time. States he has not had any bowel movements yet. Denies any active bleeding, any chest pain, any shortness of breath, any dizziness or syncopal episodes since he has been here. Does not feel like his pacemaker/defibrillator has been sent off. He is status post interrogation by [facility]. Review of Systems 10-point ROS is otherwise unremarkable Physical Examination - Vital Signs Temperature: 98.2 F Blood Pressure: 118/63 Pulse: 71 Respirations: 22 Pulse Ox (%): 94 - Physical Exam General: Alert, In no apparent distress, Oriented x3 HEENT: Atraumatic, PERRLA, EOMI Neck: Supple, JVD not distended Respiratory: Clear to auscultation bilaterally, Normal air movement Cardiovascular: Regular rate/rhythm, Normal S1 S2 Gastrointestinal: Normal bowel sounds, No tenderness Musculoskeletal: No tenderness Integumentary: No rashes Neurological: Normal speech, Normal tone, Normal affect Lymphatics: No axilla or inguinal lymphadenopathy Assessment And Plan - Current Problems (Diagnosis) (1) Syncope Current Visit: Yes Status: Acute Qualifiers: Qualified Code(s): R55 - Syncope and collapse (2) Defibrillator discharge Current Visit: Yes Status: Acute (3) Cardiac defibrillator in situ Current Visit: Yes Status: Chronic (4) Colitis Current Visit: Yes Status: Acute (5) Hypertension Current Visit: Yes Status: Chronic Qualifiers: Qualified Code(s): I10 - Essential (primary) hypertension (6) CKD (chronic kidney disease) Current Visit: Yes Status: Chronic Qualifiers: Qualified Code(s): N18.3 - Chronic kidney disease, stage 3 (moderate) (7) History of prostate cancer Current Visit: Yes Status: Chronic (8) Diabetes mellitus Current Visit: Yes Status: Chronic Qualifiers: Qualified Code(s): E11.9 - Type 2 diabetes mellitus without complications (9) Atrial fibrillation Current Visit: Yes Status: Chronic Qualifiers: Qualified Code(s): I48.2 - Chronic atrial fibrillation (10) Hyperlipidemia Current Visit: Yes Status: Chronic Qualifiers: Qualified Code(s): E78.5 - Hyperlipidemia, unspecified (11) CHF (congestive heart failure) Current Visit: Yes Status: Chronic Qualifiers: Qualified Code(s): I50.9 - Heart failure, unspecified (12) Acute renal failure Current Visit: Yes Status: Acute Qualifiers: Acute renal failure type: unspecified Qualified Code(s): N17.9 - Acute kidney failure, unspecified - Plan This is a 68-year-old male with: Defibrillator discharge (Acute) Z45.02 Cardiac defibrillator in situ (Chronic) Status post pacemaker interrogation with [facility]. It seems that his defibrillator was discharging from atrial tachycardia. Defibrillator adjusted. No new episodes noted. Syncope (Acute) R55 No episodes while in the hospital. Likely secondary to his defibrillator discharge. Continue to monitor after pacemaker interrogation. Atrial fibrillation (Chronic) I48.91 Will continue his home medications Cardiology consult, recommendations appreciated Colitis (Acute) K52.9 Improving We will avoid fluoroquinolones because this cardiac disease. Continue IV Mefoxin and Flagyl for his colitis. CHF (congestive heart failure) (Chronic) I50.9 Unspecified stage. History per patient. No evidence of volume overload at this time. Acute Kidney disease CKD (chronic kidney disease) (Chronic) N18.9 Unsure of baseline Cr, though Cr elevated and worsened this morning. May consider getting nephrology consult Will avoid nephrotoxic drugs Continue Gentle hydration d/t his CHF hx. continue to monitor. Diabetes mellitus (Chronic) E11.9 ACHS accu-checks Mild sliding scale insulin Hyperlipidemia (Chronic) E78.5 Stable, will continue home medications Hypotension w/ hx of Hypertension (Chronic) I10 He is s/p 1.5 L bolus in ED d/t low blood pressure. Improved now, continue to monitor. Hold HTN medications at this time. Will restart and adjust as needed. Discontinue lisinopril d/t JE History of prostate cancer (Chronic) Z85.46 DVT prophylaxis: Lovenox GI prophylaxis: None Diet: Heart healthy/renal Disposition: Patient stable after pacemaker interrogation/defibrillator adjustments. Will go ahead and transfer to the floor, continue to monitor overnight. Likely discharge home in the next 24-48 hr continues to remain stable.
--- NOTE | 2018-09-22 12:41 | PN ---
Date of Progress Note: 09/22/2018 Subjective: Mr. Prabhakar had been admitted with syncope secondary to atrial tachycardia. Atrial out put was increased by the defibrillator manufacturers service representative. Today, he remains in paced rhythm. Blood pre ssure is 111/59. His hemoglobin is 12. His creatinine is 3.34, which is increased. I would continu e to hold his Bactrim, Lasix, and lisinopril as well as aspirin. I recommend gentle hydration just t o see what his creatinine does. Certainly, getting a renal consult may be reasonable. No change in therapy at this point. Continue Flagyl. CEDRIC/MODL Voice ID: [id number] Report ID: [id number]
[2018-09-22] MEDS: VITAMIN D 400 UNIT TAB PO SCH (20:44)
[2018-09-22] MEDS: ATORVASTATIN 20 MG TAB PO SCH (20:44)
[2018-09-22] MEDS: DULOXETINE 30 MG CAP PO SCH (20:45)
[2018-09-23] MEDS: METRONIDAZOLE 500mg IVPB 500 MG/100 ML BAG IV SCH ×3 (00:15→16:40)
[2018-09-23] MEDS: CEFOXITIN/SWI 1gm 1 GM/10 ML SYR IV SCH ×2 (05:30→17:21)
[2018-09-23] MEDS: NA CHLORIDE 0.9% 1,000 ML IV SCH ×3 (06:00→20:00)
[2018-09-23 06:13] LABS: Absolute Monocytes 0.9 K/uL (0.1-1.3); Absolute Neutrophil 9.2 K/uL (1.8-8.0); Basophils % 2.5 % (0-1.3); Eosinophils % 3.4 % (0-4.4); Hematocrit 37.3 % (39.6-49.0); Lymphocytes % 15.3 % (15.3-44.8); RBC Red Blood Cell Count 4.39 M/uL (4.33-5.43)
[2018-09-23 06:32] LABS: Albumin 2.9 g/dL (3.4-5.0); Bilirubin Total 0.8 mg/dL (0.2-1.0); Potassium 4.8 mmol/L (3.5-5.1); Protein, Total 5.9 g/dL (6.4-8.2)
[2018-09-23] MEDS: VITAMIN D 400 UNIT TAB PO SCH ×2 (09:23→20:01)
[2018-09-23] MEDS: CYANOCOBALAMIN 1,000 MCG TAB PO SCH (09:23)
[2018-09-23] MEDS: ASPIRIN EC 81 MG TAB PO SCH (09:23)
[2018-09-23] MEDS: DULOXETINE 30 MG CAP PO SCH ×2 (09:24→20:00)
--- NOTE | 2018-09-23 12:59 | P.PN ---
Subjective Date of Service: 09/23/18 Chief Complaint: Pacemaker discharging Subjective: No C/O voiced, Ambulating, Improving Patient seen and examined at bedside. No family at bedside. Chart reviewed and case discussed with nursing staff. Patient reports improvement in symptoms. No complaints overnight. No tele events or defibrillator discharge overnight. Tolerating regular diet at this time. Reports 1 of bloody normal bowel movement overnight. Denies any active bleeding, any chest pain, any shortness of breath, any dizziness or syncopal episodes since he has been here. Does not feel like his pacemaker/defibrillator has been sent off. He is status post interrogation by [facility]. Review of Systems 10-point ROS is otherwise unremarkable Physical Examination - Vital Signs Temperature: 97.7 F Blood Pressure: 120/66 Pulse: 73 Respirations: 18 Pulse Ox (%): 95 - Physical Exam General: Alert, In no apparent distress, Oriented x3 HEENT: Atraumatic, PERRLA, EOMI Neck: Supple, JVD not distended Respiratory: Clear to auscultation bilaterally, Normal air movement Cardiovascular: Regular rate/rhythm, Normal S1 S2 Gastrointestinal: Normal bowel sounds, No tenderness Musculoskeletal: No tenderness Integumentary: No rashes Neurological: Normal speech, Normal tone, Normal affect Lymphatics: No axilla or inguinal lymphadenopathy Assessment And Plan - Current Problems (Diagnosis) (1) Syncope Onset Date: 09/23/18 Current Visit: Yes Status: Acute Qualifiers: Qualified Code(s): R55 - Syncope and collapse (2) Defibrillator discharge Onset Date: 09/23/18 Current Visit: Yes Status: Acute (3) Cardiac defibrillator in situ Onset Date: 09/23/18 Current Visit: Yes Status: Chronic (4) Colitis Onset Date: 09/23/18 Current Visit: Yes Status: Acute (5) Hypertension Onset Date: 09/23/18 Current Visit: Yes Status: Chronic Qualifiers: Qualified Code(s): I10 - Essential (primary) hypertension (6) CKD (chronic kidney disease) Onset Date: 09/23/18 Current Visit: Yes Status: Chronic Qualifiers: Qualified Code(s): N18.3 - Chronic kidney disease, stage 3 (moderate) (7) History of prostate cancer Onset Date: 09/23/18 Current Visit: Yes Status: Chronic (8) Diabetes mellitus Onset Date: 09/23/18 Current Visit: Yes Status: Chronic Qualifiers: Qualified Code(s): E11.9 - Type 2 diabetes mellitus without complications (9) Atrial fibrillation Onset Date: 09/23/18 Current Visit: Yes Status: Chronic Qualifiers: Qualified Code(s): I48.2 - Chronic atrial fibrillation (10) Hyperlipidemia Onset Date: 09/23/18 Current Visit: Yes Status: Chronic Qualifiers: Qualified Code(s): E78.5 - Hyperlipidemia, unspecified (11) CHF (congestive heart failure) Onset Date: 09/23/18 Current Visit: Yes Status: Chronic Qualifiers: Qualified Code(s): I50.9 - Heart failure, unspecified (12) Acute renal failure Onset Date: 09/23/18 Current Visit: Yes Status: Acute Qualifiers: Acute renal failure type: unspecified Qualified Code(s): N17.9 - Acute kidney failure, unspecified - Plan This is a 68-year-old male with: Defibrillator discharge (Acute) Z45.02 Cardiac defibrillator in situ (Chronic) Status post pacemaker interrogation with [facility]. It seems that his defibrillator was discharging from atrial tachycardia. Defibrillator adjusted. No new episodes noted. Syncope (Acute) R55 No episodes while in the hospital. Likely secondary to his defibrillator discharge. Continue to monitor after pacemaker interrogation. Atrial fibrillation (Chronic) I48.91 Will continue his home medications Cardiology consult, recommendations appreciated Colitis (Acute) K52.9 Improving We will avoid fluoroquinolones because this cardiac disease. Continue IV Mefoxin and Flagyl for his colitis. Plan is at discharge, will discontinue Mefoxin and continue oral Flagyl. CHF (congestive heart failure) (Chronic) I50.9 Unspecified stage. History per patient. No evidence of volume overload at this time. Acute Kidney disease CKD (chronic kidney disease) (Chronic) N18.9 Unsure of baseline Cr, though Cr elevated and worsened this morning. Improved creatinine this morning. Will continue to monitor overnight, if worse in tomorrow will consult nephrology Will avoid nephrotoxic drugs Continue Gentle hydration d/t his CHF hx. continue to monitor. Diabetes mellitus (Chronic) E11.9 ACHS accu-checks Mild sliding scale insulin Hyperlipidemia (Chronic) E78.5 Stable, will continue home medications Hypotension w/ hx of Hypertension (Chronic) I10 He is s/p 1.5 L bolus in ED d/t low blood pressure. Improved now, continue to monitor. Hold HTN medications at this time. Will restart and adjust as needed. Discontinue lisinopril d/t JE History of prostate cancer (Chronic) Z85.46 DVT prophylaxis: Lovenox GI prophylaxis: None Diet: Heart healthy/renal Disposition: Patient stable after pacemaker interrogation/defibrillator adjustments. Monitor a.m. labs for creatinine. If creatinine stable, likely discharge home in the next 24-48 hr continues to remain stable.
[2018-09-23] MEDS: ATORVASTATIN 20 MG TAB PO SCH (20:00)
[2018-09-24] MEDS: METRONIDAZOLE 500mg IVPB 500 MG/100 ML BAG IV SCH ×2 (00:10→08:02)
[2018-09-24] MEDS: CEFOXITIN/SWI 1gm 1 GM/10 ML SYR IV SCH (05:28)
[2018-09-24] MEDS: ASPIRIN EC 81 MG TAB PO SCH (08:04)
[2018-09-24] MEDS: DULOXETINE 30 MG CAP PO SCH (08:04)
[2018-09-24] MEDS: CYANOCOBALAMIN 1,000 MCG TAB PO SCH (08:05)
[2018-09-24] MEDS: VITAMIN D 400 UNIT TAB PO SCH (08:05)
[2018-09-24] MEDS ORDERED: TIOTROPIUM IH SCH (09:00)
[2018-09-24 09:38] VITALS: TEMP 97.4
[2018-09-24] MEDS ORDERED: POLYETHYL GLY 3350 17 GM/DOSE PO PRN (09:44)
[2018-09-24 09:47] VITALS: O2SAT 95
[2018-09-24] MEDS: DOCUSATE NA 100 MG CAP PO PRN (09:51)
[2018-09-24 10:46] LABS: Absolute Monocytes 0.7 K/uL (0.1-1.3); Absolute Neutrophil 7.2 K/uL (1.8-8.0); Basophils % 1.8 % (0-1.3); Eosinophils % 4.1 % (0-4.4); Hematocrit 38.1 % (39.6-49.0); Lymphocytes % 18.7 % (15.3-44.8); MPV 8.9 fL (7.6-11.3); Monocytes % 6.8 % (3.3-12.3); RBC Red Blood Cell Count 4.21 M/uL (4.33-5.43)
[2018-09-24 12:33] VITALS: BP 113/59
--- NOTE | 2018-09-25 04:59 | DS ---
Date of Discharge: 09/24/2018 Admitting Diagnoses: 1. Syncope. 2. Defibrillator discharge. 3. Acute colitis. 4. Essential hypertension. 5. Chronic kidney disease, stage 3. 6. History of prostate cancer. 7. Diabetes mellitus type 2 with long-term use of insulin with chronic kidney disease, stage 3. 8. Chronic atrial fibrillation. 9. Mixed hyperlipidemia. 10. Chronic congestive heart failure, unknown ejection fraction. 11. Gmdho-yu-yicnxjr kidney disease. 12. Hypotension. Hospital Course: The patient is a 68-year-old male, comes in with a history of hypertension; chronic kidney disease, stage 3; prostate cancer; coronary artery disease; atrial fibrillation with pacemaker defibrillator; diabetes, who comes in with pacemaker firing associated with syncopal episodes. The patient was admitted to the hospital. He was unable to be transferred to the [facility] as they were full. He was found to have episodes of ventricular tachycardia adioventricular rhythm causing the defibrillator to go off. He was evaluated by Cardiology and [facility] technical sales representative. His defibrillator was adjusted, did not have any further episodes. He did have elevated cardiac troponin related to the defibrillator discharge. The patient's kidney function did become somewhat more elevated than baseline. He does report chronic kidney disease, however, baseline creatinine is unknown. The patient is a [facility] patient. The patient did have an elevated white count which normalized. The patient was found to have some colitis on CT scan, was having some abdominal discomfort. He was started on IV antibiotics with cefoxitin and Flagyl. Overall, the patient's condition improved. He did not have any further bloody stools. His hemoglobin remained stable. He did report some constipation, was started on stool softeners. He was seen by Cardiology with Dr. Randall who felt that the syncopal episode was due to the AICD shocks secondary to atrial tachycardia. His atrial output was increased. The patient was then cleared for discharge and his lisinopril and Bactrim were held due to his acute-on- chronic renal insufficiency. The patient was then discharged home in a stable condition. He did work well with PT and the patient wanted to have physical therapy set up through the [facility] as well. Medications: As per medication reconciliation list. The patient will finish off course of Flagyl. Followup: Follow up with primary care physician at the [facility] in 2-3 days. Follow up with disease and insect control boss in 2 weeks. Follow up with scrum project manager in 2 weeks. Return to ER for worsening condition. Diet: Diabetic diet. Activity: Fall precautions. Physical Examination: General: Awake, alert, oriented x3, no acute distress, elderly male. CV: S1, S2. No murmurs. Respiratory: Moving air well bilaterally. Abdomen: Soft, nontender, nondistended. Positive bowel sounds. Extremities: No clubbing, cyanosis. The patient does have minimal peripheral edema. Neurologic: Nonfocal. Total time spent discharging the patient was 37 minutes. Code status full SA/MODL Voice ID: [id number] Report ID: [id number] MTDD
== END 2018-09-24 13:23 | disposition home or self-care (01) | DRG 312 ==
LOC: ER 10:23 → ERHOLD 14:46 → 3RD-ICU 16:10 → 4TH 09-21 15:45
PROVIDERS: ADMIT Family Medicine; ATTEND Family Medicine
DX: R55 Syncope and collapse (principal); I13.0 Hypertensive heart and chronic kidney disease with heart failure and stage 1 through stage 4 chronic kidney disease, or unspecified chronic kidney disease; N17.9 Acute kidney failure, unspecified; K62.5 Hemorrhage of anus and rectum; I47.1 Supraventricular tachycardia; K52.9 Noninfective gastroenteritis and colitis, unspecified; Z85.46 Personal history of malignant neoplasm of prostate; I48.2 Chronic atrial fibrillation; Z79.01 Long term (current) use of anticoagulants; E78.2 Mixed hyperlipidemia; I95.9 Hypotension, unspecified; E11.22 Type 2 diabetes mellitus with diabetic chronic kidney disease; N18.3 Chronic kidney disease, stage 3 (moderate); I50.9 Heart failure, unspecified; Z87.891 Personal history of nicotine dependence; Z45.02 Encounter for adjustment and management of automatic implantable cardiac defibrillator
CPT/HCPCS: 36415; 71045; 74176; 80048; 80053; 80076; 81001; 83735; 83880; 84100; 84484; 85025; 85610; 86850; 86900; 86901; 93005; 96365; 96375; 97116; 97162; 99285; J7030

== ENCOUNTER 2018-09-27 11:05 | Emergency (ER) | payer OTHER ==
[2018-09-27 12:04] LABS: Absolute Lymphocytes (CBC) 1.8 K/uL (0.7-4.9); Absolute Monocytes 0.8 K/uL (0.1-1.3); Absolute Neutrophil 6.9 K/uL (1.8-8.0); Basophils % 2.3 % (0-1.3); Eosinophils % 3.7 % (0-4.4); Lymphocytes % 17.6 % (15.3-44.8); MPV 8.7 fL (7.6-11.3); RBC Red Blood Cell Count 4.24 M/uL (4.33-5.43)
[2018-09-27 12:18] LABS: Protime INR 1.44
[2018-09-27 12:22] LABS: Albumin 3.2 g/dL (3.4-5.0); Bilirubin Direct 0.4 mg/dL (0-0.2); Bilirubin Total 0.8 mg/dL (0.2-1.0); Protein, Total 6.4 g/dL (6.4-8.2); Troponin (Emerg Dept Use Only) 0.32 ng/mL (0.0-0.045)
--- NOTE | 2018-09-27 14:58 | EDPHYS ---
Physician Documentation [facility] Name: José Prabhakar Age: 68 yrs Sex: Male : 1950 Arrival Date: 09/27/2018 Time: 11:11 Bed 23 Private MD: ED Physician Rick Chaudhry HPI: 09/27 12:10 This 68 yrs old Male presents to ER via EMS with complaints of Abnormal Lab jr8 Results. 12:10 Patient stated that [facility] and to have blood jr8 redrawn because his potassium was high. Sent to ED after seeing that he ECG read Acute CT on it. Patients past ECG on the of this month showed to be exact same. Patient denies CP or SOB. Stated that yesterday he felt abnormally tired but is better today. Severity of symptoms: At their worst the symptoms were mild in the emergency department the symptoms are unchanged. It is unknown whether or not the patient has had similar symptoms in the past. The patient has been recently seen by a physician:. Historical: - Allergies: 11:18 No Known Allergies; tw2 - Home Meds: 11:18 albuterol sulfate 90 mcg/actuation Inhl HFAA [Active]; aspirin 81 mg Oral chew 1 tab tw2 once daily [Active]; tiotropium bromide inhalation [Active]; cholecalciferol (vitamin D3) 400 unit Oral cap [Active]; carboxymethylcellulose sodium miscellaneous gran [Active]; cyclobenzaprine 10 mg Oral tab [Active]; cyanocobalamin (vitamin B-12) 1,000 mcg Oral tab [Active]; metoprolol tartrate 50 mg Oral tab [Active]; atorvastatin 20 mg Oral tab 1 tab once daily [Active]; docusate sodium 100 mg Oral cap [Active]; duloxetine 30 mg Oral cpDR [Active]; furosemide 20 mg Oral tab [Active]; lisinopril 10 mg Oral tab 1 tab once daily [Active]; Novolog 100 unit/mL Sub-Q soln [Active]; fluticasone propionate (bulk) 100 % miscellaneous powd [Active]; - PMHx: 11:18 Anemia; GERD; Atrial Fib; High Cholesterol; Diabetes - NIDDM; defibrillator; CAD; tw2 Chronic Kidney disease=stage 3; Depression; Hyperlipidemia; Hypertension; Prostate Cancer; CABG; - Immunization history:: Adult Immunizations. - Social history:: Smoking status: . - Ebola Screening: : Patient denies travel to an Ebola-affected area in the 21 days before illness onset. ROS: 12:10 Eyes: Negative for injury, pain, redness, and discharge, ENT: Negative for injury, jr8 pain, and discharge, Neck: Negative for injury, pain, and swelling, Cardiovascular: Negative for chest pain, palpitations, and edema, Respiratory: Negative for shortness of breath, cough, wheezing, and pleuritic chest pain, Abdomen/GI: Negative for abdominal pain, nausea, vomiting, diarrhea, and constipation, Back: Negative for injury and pain, MS/Extremity: Negative for injury and deformity, Skin: Negative for injury, rash, and discoloration, Neuro: Negative for headache, weakness, numbness, tingling, and seizure. Exam: 12:10 Eyes: Pupils equal round and reactive to light, extra-ocular motions intact. Lids and jr8 lashes normal. Conjunctiva and sclera are non-icteric and not injected. Cornea within normal limits. Periorbital areas with no swelling, redness, or edema. ENT: Nares patent. No nasal discharge, no septal abnormalities noted. Tympanic membranes are normal and external auditory canals are clear. Oropharynx with no redness, swelling, or masses, exudates, or evidence of obstruction, uvula midline. Mucous membranes moist. Neck: Trachea midline, no thyromegaly or masses palpated, and no cervical lymphadenopathy. Supple, full range of motion without nuchal rigidity, or vertebral point tenderness. No Meningismus. Cardiovascular: Regular rate and rhythm with a normal S1 and S2. No gallops, murmurs, or rubs. Normal PMI, no JVD. No pulse deficits. Respiratory: Lungs have equal breath sounds bilaterally, clear to auscultation and percussion. No rales, rhonchi or wheezes noted. No increased work of breathing, no retractions or nasal flaring. Abdomen/GI: Soft, non-tender, with normal bowel sounds. No distension or tympany. No guarding or rebound. No evidence of tenderness throughout. Back: No spinal tenderness. No costovertebral tenderness. Full range of motion. Skin: Warm, dry with normal turgor. Normal color with no rashes, no lesions, and no evidence of cellulitis. MS/ Extremity: Pulses equal, no cyanosis. Neurovascular intact. Full, normal range of motion. Neuro: Awake and alert, GCS 15, oriented to person, place, time, and situation. Cranial nerves II-XII grossly intact. Motor strength 5/5 in all extremities. Sensory grossly intact. Cerebellar exam normal. Normal gait. Vital Signs: 11:15 BP 125 / 78; Pulse 76; Resp 17; Temp 97.8(O); Pulse Ox 100% on R/A; Pain 0/10; tw2 11:56 BP 128 / 80; Pulse 74; Resp 15; Pulse Ox 95% on R/A; tw2 12:57 BP 141 / 85; Pulse 72; Resp 17; Pulse Ox 98% on R/A; tw2 14:09 BP 99 / 54; Pulse 79; Resp 18; Pulse Ox 95% on R/A; Pain 0/10; mg2 15:00 BP 116 / 63; Pulse 76; Resp 17; Pulse Ox 95% on R/A; tw2 MDM: 11:13 Patient medically screened. [facility] 14:55 Data reviewed: vital signs, nurses notes, lab test result(s), EKG, and as a result, I [facility] will discharge patient. Data interpreted: Pulse oximetry: on room air is 95 %. Interpretation: normal. Counseling: I had a detailed discussion with the patient and/or guardian regarding: the historical points, exam findings, and any diagnostic results supporting the discharge/admit diagnosis, lab results, the need for outpatient follow up, a media senior recruiter, a family practitioner, to return to the emergency department if symptoms worsen or persist or if there are any questions or concerns that arise at home. ED course: Patient has remained asymptomatic. No Elevation in potassium. Stable ECG changes. Compared troponin's from today to the one he recently had here with admission. Much lower today and still trending downward. Will d/c to f/u with cardiology which patient is good with . 09/27 11:37 Order name: Basic Metabolic Panel [facility] 09/27 11:37 Order name: CBC with Diff [facility] 09/27 11:37 Order name: LFT's [facility] 09/27 11:37 Order name: Magnesium [facility] 09/27 11:37 Order name: NT PRO-BNP [facility] 09/27 11:37 Order name: PT-INR [facility] 09/27 11:37 Order name: Troponin (emerg Dept Use Only) [facility] 09/27 12:08 Order name: CBC with Automated Diff; Complete Time: 12:09 EDMS 09/27 12:22 Order name: Protime (+INR); Complete Time: 12:25 EDMS 09/27 12:37 Order name: Basic Metabolic Panel; Complete Time: 12:54 EDMS 09/27 12:37 Order name: Liver (Hepatic) Function; Complete Time: 12:54 EDMS 09/27 12:37 Order name: Troponin (Emerg Dept Use Only); Complete Time: 12:54 EDMS 09/27 12:37 Order name: NT PRO-BNP; Complete Time: 12:54 EDMS 09/27 12:37 Order name: Magnesium; Complete Time: 12:54 EDMS 09/27 11:36 Order name: Diet Ada 2000 Saw; Complete Time: 11:36 tw2 09/27 11:37 Order name: EKG; Complete Time: 11:37 [facility] 09/27 11:37 Order name: Cardiac monitoring; Complete Time: 11:50 [facility] 09/27 11:37 Order name: EKG - Nurse/Tech; Complete Time: 11:50 [facility] 09/27 11:37 Order name: IV Saline Lock; Complete Time: 11:50 [facility] 09/27 11:37 Order name: Labs collected and sent; Complete Time: 50 [facility] 09/27 11:37 Order name: O2 Per Protocol; Complete Time: 11:50 [facility] 09/27 11:37 Order name: O2 Sat Monitoring; Complete Time: 11:50 [facility] 09/27 14:14 Order name: Urine Dipstick--Ancillary (enter results) eb 09/27 14:17 Order name: Troponin (emerg Dept Use Only) mg2 09/27 14:47 Order name: Troponin (Emerg Dept Use Only); Complete Time: 14:55 EDMS Administered Medications: No medications were administered Disposition: 15:32 Co-signature as Attending Physician, Rick Chaudhry MD I agree with the assessment and kdr plan of care. Disposition: 09/27/18 14:57 Discharged to Home. Impression: Encounter for general adult medical examination without abnormal findings. - Condition is Stable. - Discharge Instructions: Hyperkalemia. - Medication Reconciliation Form, Thank You Letter, Antibiotic Education, Prescription Opioid Use form. - Follow up: Private Physician; When: 2 - 3 days; Reason: Recheck today's complaints, Continuance of care, Re-evaluation by your physician. - Problem is new. - Symptoms have improved. Signatures: Dispatcher [employer] EDMS Rick Chaudhry MD MD kdr Roszak, Josh, PA PA jr8 Edwige Quezada RN RN tw2 Corrections: (The following items were deleted from the chart) 15:12 14:57 09/27/2018 14:57 Discharged to Home. Impression: Encounter for general adult tw2 medical examination without abnormal findings. Condition is Stable. Forms are Medication Reconciliation Form, Thank You Letter, Antibiotic Education, Prescription Opioid Use. Follow up: Private Physician; When: 2 - 3 days; Reason: Recheck today's complaints, Continuance of care, Re-evaluation by your physician. Problem is new. Symptoms have improved. jr8
--- NOTE | 2018-09-27 14:58 | ER ---
Nurse's Notes [facility] Name: José Prabhakar Age: 68 yrs Sex: Male : 1950 Arrival Date: 09/27/2018 Time: 11:11 Bed 23 Private MD: Diagnosis: Encounter for general adult medical examination without abnormal findings Presentation: 09/27 11:13 Presenting complaint: EMS states[facility] said tw2 his Potassium was elevated and his EKG showed acute stemi, ours showed Left Bundle branch block, pt denies pain or sob, we gave 324 mg ASA, hx: GALEANO x2, COPD, CABG, COPD, DM - defibrillator to upper right chest. Transition of care: patient was not received from another setting of care. Onset of symptoms was September 27, 2018. Risk Assessment: Do you want to hurt yourself or someone else? Patient reports no desire to harm self or others. Initial Sepsis Screen: Does the patient meet any 2 criteria? No. Patient's initial sepsis screen is negative. Does the patient have a suspected source of infection? No. Patient's initial sepsis screen is negative. Care prior to arrival: Medication(s) given: ASA, x 1, 324 mg. 11:13 Method Of Arrival: EMS: [facility] tw2 11:13 Acuity: GELY 3 tw2 Historical: - Allergies: 11:18 No Known Allergies; tw2 - Home Meds: 11:18 albuterol sulfate 90 mcg/actuation Inhl HFAA [Active]; aspirin 81 mg Oral chew 1 tab tw2 once daily [Active]; tiotropium bromide inhalation [Active]; cholecalciferol (vitamin D3) 400 unit Oral cap [Active]; carboxymethylcellulose sodium miscellaneous gran [Active]; cyclobenzaprine 10 mg Oral tab [Active]; cyanocobalamin (vitamin B-12) 1,000 mcg Oral tab [Active]; metoprolol tartrate 50 mg Oral tab [Active]; atorvastatin 20 mg Oral tab 1 tab once daily [Active]; docusate sodium 100 mg Oral cap [Active]; duloxetine 30 mg Oral cpDR [Active]; furosemide 20 mg Oral tab [Active]; lisinopril 10 mg Oral tab 1 tab once daily [Active]; Novolog 100 unit/mL Sub-Q soln [Active]; fluticasone propionate (bulk) 100 % miscellaneous powd [Active]; - PMHx: 11:18 Anemia; GERD; Atrial Fib; High Cholesterol; Diabetes - NIDDM; defibrillator; CAD; tw2 Chronic Kidney disease=stage 3; Depression; Hyperlipidemia; Hypertension; Prostate Cancer; CABG; - Immunization history:: Adult Immunizations. - Social history:: Smoking status: . - Ebola Screening: : Patient denies travel to an Ebola-affected area in the 21 days before illness onset. Screenin:56 Abuse screen: Denies threats or abuse. Nutritional screening: No deficits noted. tw2 Tuberculosis screening: No symptoms or risk factors identified. Fall Risk None identified. Assessment: 11:11 General: Appears in no apparent distress. Behavior is calm, cooperative, appropriate tw2 for age. Pain: Denies pain. Neuro: Level of Consciousness is awake, alert, obeys commands, Oriented to person, place, time, situation. Cardiovascular: Reports "since yesterday i have been tired" Denies chest pain, shortness of breath, Heart tones S1 S2 Patient's skin is warm and dry. Respiratory: Airway is patent Respiratory effort is even, unlabored, Respiratory pattern is regular, symmetrical, Breath sounds are clear bilaterally. GI: No signs and/or symptoms were reported involving the gastrointestinal system. Abdomen is round Bowel sounds present X 4 quads. : No signs and/or symptoms were reported regarding the genitourinary system. EENT: Reports pain in left ear and right ear. Derm: No signs and/or symptoms reported regarding the dermatologic system. Musculoskeletal: Range of motion: intact in all extremities. 11:56 Reassessment: Patient appears in no apparent distress at this time. No changes from tw2 previously documented assessment. Patient and/or family updated on plan of care and expected duration. Pain level reassessed. Patient is alert, oriented x 3, equal unlabored respirations, skin warm/dry/pink. 12:57 Reassessment: Patient appears in no apparent distress at this time. No changes from tw2 previously documented assessment. Patient and/or family updated on plan of care and expected duration. Pain level reassessed. Patient is alert, oriented x 3, equal unlabored respirations, skin warm/dry/pink. 14:00 Reassessment: Patient appears in no apparent distress at this time. No changes from tw2 previously documented assessment. Patient and/or family updated on plan of care and expected duration. Pain level reassessed. Patient is alert, oriented x 3, equal unlabored respirations, skin warm/dry/pink. 15:11 Reassessment: Patient appears in no apparent distress at this time. No changes from tw2 previously documented assessment. Patient and/or family updated on plan of care and expected duration. Pain level reassessed. Patient is alert, oriented x 3, equal unlabored respirations, skin warm/dry/pink. Vital Signs: 11:15 BP 125 / 78; Pulse 76; Resp 17; Temp 97.8(O); Pulse Ox 100% on R/A; Pain 0/10; tw2 11:56 BP 128 / 80; Pulse 74; Resp 15; Pulse Ox 95% on R/A; tw2 12:57 BP 141 / 85; Pulse 72; Resp 17; Pulse Ox 98% on R/A; tw2 14:09 BP 99 / 54; Pulse 79; Resp 18; Pulse Ox 95% on R/A; Pain 0/10; mg2 15:00 BP 116 / 63; Pulse 76; Resp 17; Pulse Ox 95% on R/A; tw2 ED Course: 11:11 Patient arrived in ED. tw2 11:11 Bed in low position. Call light in reach. bus driver/monitor on. Pulse ox on. NIBP on. tw2 11:12 Jose Villegas PA is PHCP. jr8 11:12 Rick Chaudhry MD is Attending Physician. jr8 11:13 Edwige Quezada, BREANNA is Primary Nurse. tw2 11:15 Triage completed. tw2 11:16 Arm band placed on. tw2 11:16 Patient EKG performed in exam room, FEORZ Bynum provider notified. tw2 13:45 Warm blanket given. Pillow given. jp3 14:00 Urine collected: clean catch specimen, clear, migel colored, Amount Voided: 100mL. jp3 14:15 Urine Dipstick--Ancillary (enter results) Sent. jp3 14:24 Repeat lab(s) drawn. by me, sent to lab. Maintain EMS IV. Dressing intact. Good blood jp3 return noted. Site clean \\T\\ dry. Gauge \\T\\ site: 20-gauge in Left Lateral AC. 14:25 Troponin (emerg Dept Use Only) Sent. jp3 15:12 No provider procedures requiring assistance completed. IV discontinued, intact, tw2 bleeding controlled, No redness/swelling at site. Pressure dressing applied. Administered Medications: No medications were administered Outcome: 14:57 Discharge ordered by . ronald 15:12 Discharged to home via wheelchair, with significant other. tw2 15:12 Condition: stable 15:12 Discharge instructions given to patient, significant other, Instructed on discharge instructions, follow up and referral plans. Demonstrated understanding of instructions, follow-up care. 15:12 Patient left the ED. tw2 Signatures: Jose Villegas PA PA jr8 Edwige Quezada RN RN tw2 Ignacio Okeefe, BREANNA RN mg2 Damon Martinez jp3
[2018-09-27 16:10] LABS: Urine Blood NEGATIVE (NEG); Urine Glucose NEGATIVE (NEG); Urine Protein TRACE (NEG)
[2018-09-27 16:30] VITALS: TEMP 97.8
[2018-09-27 16:33] VITALS: O2SAT 95
[2018-09-27 16:35] VITALS: BP 116/63
--- NOTE | 2018-09-28 08:57 | EKG ---
Test Date: 2018-09-27 Test Time: 11:06:52 Master Welder: ELVIRA MEASUREMENT RESULTS: Intervals: Rate: 76 [place]: 240 QRSD: 178 QT: 534 QTc: 600 [place]: P: 78 [place]: 240 QRS: -86 T: 80 INTERPRETIVE STATEMENTS: Atrial-sensed ventricular-paced rhythm tracking sinus rhythm Compared to ECG 09/20/2018 10:50:05 Atrial-sensed ventricular-paced rhythm is now present Electronically Signed On 09-28-18 08:57:15 [employer] INSTRUCTOR by Yvon Ly
== END 2018-09-27 15:12 | disposition home or self-care (01) ==
LOC: ER 11:05
DX: Z00.00 Encounter for general adult medical examination without abnormal findings (principal); I12.9 Hypertensive chronic kidney disease with stage 1 through stage 4 chronic kidney disease, or unspecified chronic kidney disease; E11.22 Type 2 diabetes mellitus with diabetic chronic kidney disease; N18.3 Chronic kidney disease, stage 3 (moderate); E78.5 Hyperlipidemia, unspecified; F32.9 Major depressive disorder, single episode, unspecified; I48.91 Unspecified atrial fibrillation; Z79.4 Long term (current) use of insulin; Z79.82 Long term (current) use of aspirin; Z85.46 Personal history of malignant neoplasm of prostate; Z95.1 Presence of aortocoronary bypass graft; Z95.810 Presence of automatic (implantable) cardiac defibrillator
CPT/HCPCS: 36415; 80048; 80076; 81003; 83735; 83880; 84484; 85025; 85610; 93005; 99284

== ENCOUNTER 2018-11-12 15:14 | Emergency (ER) | payer OTHER ==
[2018-11-12 16:55] LABS: Absolute Lymphocytes (CBC) 1.7 K/uL (0.7-4.9); Absolute Monocytes 0.9 K/uL (0.1-1.3); Absolute Neutrophil 8.1 K/uL (1.8-8.0); Basophils % 1.2 % (0-1.3); Eosinophils % 1.9 % (0-4.4); Hematocrit 35.5 % (39.6-49.0); MPV 8.3 fL (7.6-11.3); Monocytes % 8.1 % (3.3-12.3); RBC Red Blood Cell Count 3.86 M/uL (4.33-5.43)
[2018-11-12] MEDS ORDERED: VANCOMYCIN/NS 1 gm 1 GM/250 ML BAG IV SCH (17:00)
[2018-11-12] MEDS ORDERED: MORPHINE 4 MG/ML SYR ONE (17:04)
[2018-11-12] MEDS ORDERED: CEFTRIAXONE/SWI 1gm 1 GM/10 ML SYR ONE (17:04)
[2018-11-12] MEDS ORDERED: ONDANSETRON 4 MG/2 ML VIAL ONE (17:04)
[2018-11-12] MEDS ORDERED: NA CHLORIDE 0.9% 2,000 ML ONE (17:04)
[2018-11-12 17:10] LABS: Protime INR 1.25
--- NOTE | 2018-11-12 17:20 | RAD REPORT ---
EXAM DESCRIPTION: RAD - Chest Single View - 11/12/2018 5:10 pm CLINICAL HISTORY: Shortness of breath, soft tissue wound COMPARISON: September 20 TECHNIQUE: AP portable chest image was obtained 1556 hours . FINDINGS: No peripheral mass consolidation. Prominent interstitial pattern is seen but not substanti ally different. Severity could mask early interstitial edema or infiltrate. Heart and vasculature are normal. No measurable pleural effusion and no pneumothorax. No acute bony abnormality seen. No acute aortic findings suspected. IMPRESSION: Chronic interstitial pattern is present not substantially different from comparison. Severity of chronic pattern could mask early interstitial edema or infiltrate.
--- NOTE | 2018-11-12 17:20 | RAD REPORT ---
EXAM DESCRIPTION: RAD - Tib Fib Left - 11/12/2018 5:10 pm CLINICAL HISTORY: Soft tissue wound anterior leg COMPARISON: None. FINDINGS: No fracture is identified. No periosteal reaction. No acute or destructive bone process. No foreign body or other soft tissue abnormality. IMPRESSION: No air or foreign body at the soft tissue wound site. No acute bone finding.
[2018-11-12 17:21] LABS: Urine Bacteria <20 /HPF (NONE SEEN); Urine Culture Reflex Order REFLEXED; Urine RBC <5 /HPF (NONE SEEN)
[2018-11-12 17:21] LABS: Albumin 3.4 g/dL (3.4-5.0); Bilirubin Direct 0.8 mg/dL (0-0.2); Bilirubin Total 1.3 mg/dL (0.2-1.0); CKMB Creatine Kinase MB 2.4 ng/mL (0.3-3.6); Potassium 3.9 mmol/L (3.5-5.1); Protein, Total 7.7 g/dL (6.4-8.2); Troponin (Emerg Dept Use Only) 0.38 ng/mL (0.0-0.045)
--- NOTE | 2018-11-12 17:40 | EDPHYS ---
Physician Documentation [facility] Name: José Prabhakar Age: 68 yrs Sex: Male : 1950 Arrival Date: 11/12/2018 Time: 15:16 Bed 20 Private MD: ED Physician Fidelia Mondragon HPI: 11/12 15:49 This 68 yrs old Male presents to ER via Wheelchair with complaints of Leg ma2 Problem. 15:49 The patient presents with pain, infected left lower leg wound since surgery 1 month ago ma2 . The complaints affect the medial aspect of left calf. Onset: The symptoms/episode began/occurred gradually, 3 day(s) ago. Associated signs and symptoms: Pertinent positives: nausea, Pertinent negatives tingling, warmth. Severity of symptoms: At their worst the symptoms were moderate, in the emergency department the symptoms are unchanged. The patient has not experienced similar symptoms in the past. Historical: - PMHx: 15:24 Anemia; Atrial Fib; CABG; CAD; Chronic Kidney disease=stage 3; defibrillator; aa5 Depression; Diabetes - NIDDM; GERD; High Cholesterol; Hyperlipidemia; Hypertension; Prostate Cancer; - PSHx: 15:24 left leg stent; aa5 - Immunization history:: Flu vaccine is not up to date. - Social history:: Smoking status: Patient/guardian denies using tobacco, Patient/guardian denies using alcohol, street drugs, The patient lives with family. - Ebola Screening: : No symptoms or risks identified at this time. - Family history:: not pertinent. ROS: 15:49 Constitutional: Negative for fever, chills, and weight loss, Cardiovascular: Negative ma2 for chest pain, palpitations, and edema, Respiratory: Negative for shortness of breath, cough, wheezing, and pleuritic chest pain, Abdomen/GI: Negative for abdominal pain, nausea, diarrhea, and constipation. 15:49 MS/extremity: Positive for erythema, pain, warmth. Exam: 15:49 Constitutional: This is a well developed, well nourished patient who is awake, alert, ma2 and in no acute distress. Chest/axilla: Normal chest wall appearance and motion. Nontender with no deformity. No lesions are appreciated. Cardiovascular: Regular rate and rhythm with a normal S1 and S2. No gallops, murmurs, or rubs. Normal PMI, no JVD. No pulse deficits. Respiratory: Lungs have equal breath sounds bilaterally, clear to auscultation and percussion. No rales, rhonchi or wheezes noted. No increased work of breathing, no retractions or nasal flaring. Back: No spinal tenderness. No costovertebral tenderness. Full range of motion. 15:49 Abdomen/GI: Soft, non-tender, with normal bowel sounds. No distension or tympany. No guarding or rebound. No evidence of tenderness throughout. 15:49 Neuro: Awake and alert, GCS 15, oriented to person, place, time, and situation. Cranial nerves II-XII grossly intact. Motor strength 5/5 in all extremities. Sensory grossly intact. Cerebellar exam normal. Normal gait. 15:49 Abdomen/GI: Palpation: 15:49 Musculoskeletal/extremity: ROM: intact in all extremities, Circulation is intact in all extremities. Compartment Syndrome exam of affected extremity: is normal. left anterior tibial wound is surgical, wound is infected with puss induration no crepitation, infection is gradual over last 1 week . Vital Signs: 15:24 BP 114 / 72; Pulse 77; Resp 18 S; Temp 98.6(TE); Pulse Ox 98% on R/A; Weight 89.81 kg aa5 (R); Height 5 ft. 11 in. (180.34 cm) (R); Pain 10/10; 17:00 BP 211 / 91; Pulse 68; Resp 16; Pulse Ox 96% ; bp 19:10 BP 140 / 70; Pulse 60; Resp 18; Temp 97.6; Pulse Ox 95% ; ea 20:16 BP 137 / 62; Pulse 62; Resp 18; Pulse Ox 99% on R/A; ea 21:50 BP 128 / 57; Pulse 62; Resp 18; Temp 98.2; Pulse Ox 97% on R/A; ea 22:15 BP 130 / 58; Pulse 60; Resp 18; Pulse Ox 99% ; ea 15:24 Body Mass Index 27.62 (89.81 kg, 180.34 cm) aa5 MDM: 15:27 Patient medically screened. ma2 15:49 Differential diagnosis: cellulitis, no s/s of necrotizing facs. ma2 17:35 ED course: trop and creatinine both elevated yet unchanged from prior result in sep. ma2 17:38 Data reviewed: vital signs, nurses notes. Counseling: I had a detailed discussion with [facility] the patient and/or guardian regarding: the historical points, exam findings, and any diagnostic results supporting the discharge/admit diagnosis, the presence of at least one elevated blood pressure reading (>120/80) during this emergency department visit. Counseling: I had a detailed discussion with the patient and/or guardian regarding: the need to transfer to another facility, per patient request transfer to [place] for [place] of care . Response to treatment: the patient's symptoms have markedly improved after treatment. 20:34 ED course: accepted by dr. Wise. [facility] 11/12 15:48 Order name: Basic Metabolic Panel; Complete Time: 17:34 [facility] 11/12 15:48 Order name: Blood Culture Adult (2) [facility] 11/12 15:48 Order name: CBC with Diff; Complete Time: 17:34 [facility] 11/12 15:48 Order name: Ckmb; Complete Time: 17:34 [facility] 11/12 15:48 Order name: CPK; Complete Time: 17:34 va11/12 15:48 Order name: Lactate; Complete Time: 17:34 [facility] 11/12 15:48 Order name: LFT's; Complete Time: 17:34 [facility] 11/12 15:48 Order name: Lipase; Complete Time: 17:34 va11/12 15:48 Order name: Procalcitonin; Complete Time: 17:34 va11/12 15:48 Order name: Protime (+inr); Complete Time: 17:34 [facility] 11/12 15:48 Order name: Ptt, Activated; Complete Time: 17:34 va11/12 15:48 Order name: Troponin (emerg Dept Use Only); Complete Time: 17:34 [facility] 11/12 15:48 Order name: Urine Microscopic Only; Complete Time: 17:34 va11/12 17:23 Order name: Urine Culture [facility] 11/12 15:48 Order name: Chest Single View XRAY; Complete Time: 17:34 va11/12 15:48 Order name: Accucheck; Complete Time: 16:38 va11/12 15:48 Order name: Cardiac monitoring; Complete Time: 16:38 [facility] 11/12 15:48 Order name: EKG - Nurse/Tech; Complete Time: 17:13 [facility] 11/12 15:48 Order name: IV Saline Lock - Large Bore; Complete Time: 16:38 va2 11/12 15:48 Order name: Labs collected and sent; Complete Time: 16:37 va2 11/12 15:48 Order name: O2 Per Protocol; Complete Time: 16:37 va2 11/12 15:48 Order name: O2 Sat Monitoring; Complete Time: 16:37 [facility] 11/12 15:58 Order name: XRAY Tib Fib LEFT; Complete Time: 17:34 va2 11/12 18:04 Order name: EKG Electrocardiogram [facility] 11/12 18:43 Order name: Urine Dipstick--Ancillary (enter results); Complete Time: 20:28 11/12 15:48 Order name: Urine Dipstick-Ancillary (obtain specimen); Complete Time: 17:04 va2 Administered Medications: 16:40 Drug: NS 0.9% (30 ml/kg) 30 ml/kg Route: IV; Rate: bolus; Site: left antecubital; bp 16:45 Drug: Rocephin 1 grams Route: IV; Rate: calculated rate; Site: left antecubital; bp 16:45 Drug: morphine 4 mg Route: IVP; Site: left antecubital; bp 16:45 Drug: Zofran 4 mg Route: IVP; Site: left antecubital; bp 16:50 Drug: vancoMYCIN 1 grams Route: IVPB; Infused Over: 2 hrs; Site: left antecubital; bp Disposition: 11/12/18 17:40 Transfer ordered to [facility]. Diagnosis are Cellulitis of left lower limb, Symptoms and signs specifically associated with systemic inflammation and infection. - Reason for transfer: Higher level of care. - Accepting physician is [place]. - Condition is Stable. - Problem is new. - Symptoms are unchanged. Signatures: Dispatcher [employer] EDNesha Abdullahi RN RN aa5 Alondra Toscano RN RN ea Peltier, Brian, RN RN bp Fidelia Mondragon MD MD ma2 Corrections: (The following items were deleted from the chart) 17:40 17:40 11/12/2018 17:40 Transfer ordered to [address] Diagnosis is Cellulitis of left lower limb. Reason for transfer: Higher level of care. [facility]. Condition is Stable. Problem is new. Symptoms are unchanged. ma2 22:27 17:40 11/12/2018 17:40 [facility]. Diagnosis is Cellulitis of left lower limb; Symptoms and signs specifically associated with systemic inflammation and infection. Reason for transfer: Higher level of care. [facility] is [facility]. Condition is Stable. Problem is new. Symptoms are unchanged. ma2
--- NOTE | 2018-11-12 17:40 | ER ---
Nurse's Notes [facility] Name: José Prabhakar Age: 68 yrs Sex: Male : 1950 Arrival Date: 11/12/2018 Time: 15:16 Bed 20 Private MD: Diagnosis: Cellulitis of left lower limb;Symptoms and signs specifically associated with systemic inflammation and infection Presentation: 11/12 15:21 Presenting complaint: Patient states: seen at the [place] [facility] and sent here for possible aa5 wound infection. Pt reports states "I had surgery october 13 for a blood clot in my leg and I had [facility]". Transition of care: patient was not received from another setting of care. Onset of symptoms was November 12, 2018. Risk Assessment: Do you want to hurt yourself or someone else? Patient reports no desire to harm self or others. Care prior to arrival: None. 15:21 Method Of Arrival: Wheelchair aa5 15:21 Acuity: GELY 3 aa5 15:24 Initial Sepsis Screen: Does the patient meet any 2 criteria? No. Patient's initial aa5 sepsis screen is negative. Does the patient have a suspected source of infection? No. Patient's initial sepsis screen is negative. Historical: - PMHx: 15:24 Anemia; Atrial Fib; CABG; CAD; Chronic Kidney disease=stage 3; defibrillator; aa5 Depression; Diabetes - NIDDM; GERD; High Cholesterol; Hyperlipidemia; Hypertension; Prostate Cancer; - PSHx: 15:24 left leg stent; aa5 - Immunization history:: Flu vaccine is not up to date. - Social history:: Smoking status: Patient/guardian denies using tobacco, Patient/guardian denies using alcohol, street drugs, The patient lives with family. - Ebola Screening: : No symptoms or risks identified at this time. - Family history:: not pertinent. Screenin:00 Abuse screen: Denies threats or abuse. Nutritional screening: No deficits noted. ea Tuberculosis screening: No symptoms or risk factors identified. Fall Risk IV access (20 points). Assessment: 15:30 General: Appears in no apparent distress. uncomfortable, obese, Behavior is calm, bp cooperative, appropriate for age. Pain: Complains of pain in medial aspect of left calf. Neuro: Level of Consciousness is awake, alert, obeys commands, Oriented to person, place, time, situation, Appropriate for age. Cardiovascular: No deficits noted. Respiratory: Airway is patent Respiratory effort is even, unlabored, Respiratory pattern is regular, symmetrical. GI: No signs and/or symptoms were reported involving the gastrointestinal system. : No signs and/or symptoms were reported regarding the genitourinary system. EENT: No deficits noted. Derm: Wound noted medial aspect of left calf Wound is NON-HEALING WOUND. Musculoskeletal: Circulation, motion, and sensation intact. Range of motion: intact in all extremities. 19:00 General: Appears in no apparent distress. Behavior is calm, cooperative, appropriate ea for age. Pain: Denies pain. Neuro: Level of Consciousness is awake, alert, obeys commands, Oriented to person, place, time, situation, Appropriate for age. Cardiovascular: Patient's skin is warm and dry. Respiratory: Airway is patent Respiratory effort is even, unlabored, Respiratory pattern is regular, symmetrical. GI: No signs and/or symptoms were reported involving the gastrointestinal system. Derm: Wound noted medial aspect of left calf. 21:15 Reassessment: Patient and/or family updated on plan of care and expected duration. Pain ea level reassessed. Patient is alert, oriented x 3, equal unlabored respirations, skin warm/dry/pink. Provider gave verbal order for wet to dry dressing to left calf. Wet to dry dressing applied to left calf, pt tolerating well. 22:16 Reassessment: Patient and/or family updated on plan of care and expected duration. Pain ea level reassessed. Patient is alert, oriented x 3, equal unlabored respirations, skin warm/dry/pink. Report given to [facility], pt left ED via stretcher per [facility]. Pt tolerating well. Vital Signs: 15:24 BP 114 / 72; Pulse 77; Resp 18 S; Temp 98.6(TE); Pulse Ox 98% on R/A; Weight 89.81 kg aa5 (R); Height 5 ft. 11 in. (180.34 cm) (R); Pain 10/10; 17:00 BP 211 / 91; Pulse 68; Resp 16; Pulse Ox 96% ; bp 19:10 BP 140 / 70; Pulse 60; Resp 18; Temp 97.6; Pulse Ox 95% ; ea 20:16 BP 137 / 62; Pulse 62; Resp 18; Pulse Ox 99% on R/A; ea 21:50 BP 128 / 57; Pulse 62; Resp 18; Temp 98.2; Pulse Ox 97% on R/A; ea 22:15 BP 130 / 58; Pulse 60; Resp 18; Pulse Ox 99% ; ea 15:24 Body Mass Index 27.62 (89.81 kg, 180.34 cm) aa5 ED Course: 15:16 Patient arrived in ED. as 15:23 Triage completed. aa5 15:23 Arm band placed on. aa5 15:26 Fidelia Mondragon MD is Attending Physician. ma2 15:59 Mitchell Estes, BREANNA is Primary Nurse. bp 16:30 Initial lab(s) drawn, by pr, sent to lab. First set of blood cultures drawn by pr, [facility] Second set of blood cultures drawn by pr. 16:49 Inserted saline lock: 20 gauge antecubital area, using aseptic technique. Blood [facility] collected. 16:50 Patient has correct armband on for positive identification. Bed in low position. Call [facility] light in reach. Side rails up X 1. Side rails up X2. Adult w/ patient. Warm blanket given. Pulse ox on. NIBP on. 16:51 Basic Metabolic Panel Sent. 5 16:51 Blood Culture Adult (2) Sent. 5 16:51 CBC with Diff Sent. 5 16:51 Ckmb Sent. 5 16:51 CPK Sent. 5 16:51 Lactate Sent. 5 16:52 Procalcitonin Sent. 5 16:52 Protime (+inr) Sent. mh5 16:52 Ptt, Activated Sent. mh5 16:52 Troponin (emerg Dept Use Only) Sent. mh5 17:04 Urine Microscopic Only Sent. mh5 17:04 Troponin (emerg Dept Use Only) Sent. mh5 17:04 Lipase Sent. mh5 17:04 LFT's Sent. mh5 17:04 CPK Sent. mh5 17:04 Basic Metabolic Panel Sent. mh5 17:04 Blood Culture Adult (2) Sent. mh5 17:05 CBC with Diff Sent. mh5 17:05 Ckmb Sent. mh5 17:09 X-ray completed. Portable x-ray completed in exam room. Patient tolerated procedure jr1 well. 17:10 Chest Single View XRAY In Process Unspecified. EDMS 17:10 XRAY Tib Fib LEFT In Process Unspecified. EDMS 18:04 EKG done, by sterilisation technician. reviewed by Fidelia Mondragon MD. sm3 22:11 No provider procedures requiring assistance completed. Patient transferred, IV remains ea in place. Administered Medications: 16:40 Drug: NS 0.9% (30 ml/kg) 30 ml/kg Route: IV; Rate: bolus; Site: left antecubital; bp 16:45 Drug: Rocephin 1 grams Route: IV; Rate: calculated rate; Site: left antecubital; bp 16:45 Drug: morphine 4 mg Route: IVP; Site: left antecubital; bp 16:45 Drug: Zofran 4 mg Route: IVP; Site: left antecubital; bp 16:50 Drug: vancoMYCIN 1 grams Route: IVPB; Infused Over: 2 hrs; Site: left antecubital; bp Outcome: 17:40 ER care complete, transfer ordered by MD. lima 19:00 Transferred by ground EMS to [facility] Transfer form completed. ea 19:00 Condition: stable 19:00 Instructed on the need for transfer, Demonstrated understanding of instructions. 22:27 Patient left the ED. ea Signatures: Dispatcher [employer] EDMS Maci Wills jr1 Rubi Shepherd Audri, RN RN Laila Pillai Elena, RN RN ea Peltier, Brian, RN RN bp Alzahri, Mohammad, MD MD fl2 Roma Claudio 3 Corrections: (The following items were deleted from the chart) 17:18 17:00 BP 140 / 56; Pulse 76bpm; Resp 14bpm; Pulse Ox 96%; bp bp 22:16 19:00 Derm: Wound noted medial aspect of left calf eugenia bello
[2018-11-12 18:47] LABS: Urine Blood NEGATIVE (NEG); Urine Glucose NEGATIVE (NEG); Urine Protein 2+ (NEG)
[2018-11-12 22:36] VITALS: TEMP 98.2
[2018-11-12 22:37] VITALS: BP 130/58; O2SAT 99
--- NOTE | 2018-11-13 10:48 | EKG ---
Test Date: 2018-11-12 Test Time: 17:58:39 Cloth Colorer: ROMULO MEASUREMENT RESULTS: Intervals: Rate: 79 MD: QRSD: 180 QT: 604 QTc: 692 [place]: P: MD: QRS: 265 T: 88 INTERPRETIVE STATEMENTS: AV sequential or dual chamber electronic pacemaker Compared to ECG 09/27/2018 11:06:52 Ventricular-paced complex(es) or rhythm no longer present Atrial-sensed ventricular-paced complex(es) or rhythm no longer present Sinus rhythm no longer present Electronically Signed On 11-13-18 10:47:55 CDT by Yvon Ly
== END 2018-11-12 22:27 ==
LOC: ER 15:14
DX: S81.802A Unspecified open wound, left lower leg, initial encounter (principal); L03.116 Cellulitis of left lower limb; Z95.0 Presence of cardiac pacemaker
CPT/HCPCS: 36415; 71045; 80048; 80076; 81003; 81015; 82550; 82553; 83605; 83690; 84145; 84484; 85025; 85610; 85730; 87040; 87086; 87088; 93005; 96374; 96375; 99285; J0696; J2405; J3370; J7030